=== PATIENT | female | born 1955 | race Two or more races ===

== ENCOUNTER 2024-08-04 12:49 | Inpatient (IN) | payer MEDICARE, MEDICAID, SELFPAY ==
[2024-08-04] VITALS (19 sets, daily range): BP systolic 0–168; BP diastolic 0–75; PULSE 25–70; RESP 15–29; TEMP 35.8–36.6; O2SAT 90–98; BMI 25.9; BMI 26.1
--- NOTE | 2024-08-04 13:00 | PC.NURSE ---
pt bradycardic, dr. laguerre notified and at bedside to assess.
--- NOTE | 2024-08-04 13:01 | EKG_ITS ---
[facility] (Formerly [facility])[3] Test Date: 2024-08-04 Pat Name: KIMBERLY BACH Department: Room: - Gender: Female Sonar Technician: : 1955 Requested By: Tre Cody Order Number: [id number] Reading MD: Tre Cody Measurements Intervals [place] Rate: 25 P: RI: QRS: 87 QRSD: 117 T: 104 QT: 671 QTc: 439 Interpretive Statements SUPRAVENTRICULAR BRADYCARDIA SEPTAL MYOCARDIAL INFARCTION , OF INDETERMINATE AGE [40+ ms Q WAVE IN V1/V2] Compared to ECG 10/11/2021 08:08:57 Sinus rhythm no longer present First degree AV block no longer present Myocardial infarct finding still present /store/S0/[id number]
[2024-08-04] MEDS: ATROPINE SULF INJ 0.1 MG/ML SYR 10 ML 0.5 MG IV ×2 (13:13→13:14)
[2024-08-04] MEDS: CALCIUM CHLORIDE 10% INJ 10 ML SYRG IV (13:14)
--- NOTE | 2024-08-04 13:15 | EKG_ITS ---
[facility] Test Date: 2024-08-04 Pat Name: KIMBERLY BACH Department: Room: - Gender: Female Order Analyst: [facility] : 1955 Requested By: Tre Cody Order Number: [id number] Reading MD: Tre Cody Measurements Intervals [place] Rate: 69 P: HI: QRS: -67 QRSD: 174 T: 105 QT: 493 QTc: 531 Interpretive Statements ELECTRONIC VENTRICULAR PACEMAKER ABNORMAL RHYTHM ECG Compared to ECG 08/04/2024 13:13:14 Myocardial infarct finding no longer present /store/S0/[id number]
--- NOTE | 2024-08-04 13:15 | XR_ITS ---
Examination: AP chest single view TECHNIQUE: AP portable sitting chest single view Exam date and time: August 04, 2024 1339 hours INDICATIONS: Weakness shortness of breath today. FINDINGS: Mild prominence of ventricle No pneumonia or pulmonary edema Prominent osteopenia Mild basilar bronchitis pattern IMPRESSION: No pneumonia or pulmonary edema Mild basilar bronchitis pattern
[2024-08-04] MEDS: Magnesium Sulfate 2 GM Ivpb 2 GM/50 ML BAG IV (13:18)
[2024-08-04] MEDS: DOBUTamine/D5w 500 MG IVPB 500 MG/250 ML BAG IV (13:30)
--- NOTE | 2024-08-04 13:30 | PC.NURSE ---
PT BEING PACED AT 60mA AND 60PPM.
[2024-08-04] MEDS: HYDROmorphone INJ 2 MG/ML VIAL 0.25 MG IVP (13:36)
--- NOTE | 2024-08-04 13:40 | EDNOTE_ITS ---
ED General RME/HPI General Chief complaint: Arrhythmia/Palpitations Stated complaint: WEAKNESS/ DIZZINESS Time Seen by Provider: 08/04/24 13:02 Arrival date/time: 08/04/24 12:49 RME / HPI RME / HPI narrative: 69-year-old female with history of hypertension dyslipidemia, elx-[id number]-tzprxxgsn diabetes who presents the emergency department with generalized weakness. She is critically bradycardic and unable to answer questions, history is limited due to the acuity. Son's: They note that her mother was otherwise well yesterday, there was a family get together and ate dinner which she had no issues with. However this morning she was sleepier and slept in until after 10:00 where she was still persistently lethargic therefore presents by EMS. She did not take her morning medicines including her Plavix. She likely took her last Plavix yesterday midmorning. Related Data Home Medications ?Medication ?Instructions ?Recorded ?Confirmed atorvastatin 40 mg tablet (Lipitor) 40 mg PO HS #0 tabs 12/16/15 glipizide 10 mg tablet 10 mg PO #0 tabs 12/16/15 metformin 850 mg tablet 850 mg PO BIDWM #0 tabs 12/16/15 (Glucophage) enalapril maleate 5 mg tablet 5 mg PO QDAY #0 tabs 07/02/16 (Vasotec) Hydrocodone/Acetaminophen * (NORCO 1 tab PO Q4H PRN PAIN #0 tabs 09/04/17 5/325 *) Previous Rx's ?Medication ?Instructions ?Recorded Amlodipine Besylate 10 mg PO QDAY #30 tabs 12/20/15 clopidogrel 75 mg tablet (Plavix) 75 mg PO QDAY #30 tabs 12/20/15 omeprazole 20 mg capsule,delayed 20 mg PO QDAY #30 caps 10/11/21 release Allergies Allergy/AdvReac Type Severity Reaction Status Date / Time No Known Allergies Allergy Verified 10/01/21 17:55 Review of Systems Review of Systems ROS Unobtainable: unobtainable due to medical condition ED Exam Narrative Physical exam: GENERAL APPEARANCE: Lethargic, open eyes to command, can answer 1-2 words at the most and then stops HEENT: NC, AT. MMM. Pale and cold to touch, EOMI, clear conjunctiva, oropharynx clear. NECK: Supple without lymphadenopathy. No stiffness or restricted ROM. HEART: Bradycardic regular, normal S1/S1, no m/r/g, no palpable pacemaker LUNGS: CTAB, moving air well. No crackles or wheezes are heard. ABDOMEN: Soft, nontender, nondistended with good bowel sounds heard. BACK: No midline C/T/L spine pain or deformity, No CVAT, no obvious deformity. EXTREMITIES: Without cyanosis, clubbing or edema., No obvious dialysis access such as fistula or catheter MUSCULOSKELETAL: FROM of all major joints, no chest tenderness NEUROLOGICAL: Grossly nonfocal. Alert and oriented, moving all 4 extremities. CN not formally tested but appear grossly intact. Observed to ambulate with normal gait. Skin: Warm and dry without any rash. Course Course Course Narrative: On arrival patient patient is lethargic, does open eyes to commands and answers 1-2 questions and then stops. Bedside telemetry shows heart rate of 20s to 30s. Blood pressure pending. Heart rate not responsive to atropine QRS widening complex not responsive to CaCl Heart rate not responsive to dobutamine EKG shows third-degree heart block with P waves buried in Q complex, no acute ST or T wave changes Transcutaneous pacing started with capture at 80 mA at 60 beats per minutes, patient is opening her eyes spontaneously now and much more alert. Quality Measures none Orders Category Date Time Status Bedside COVID-19 Antigen Test NOW Care 08/04/24 13:33 Active Bedside Influenza A&B Antigen Test NOW Care 08/04/24 13:33 Completed EKG (ED ONLY) *Do not use* NOW Care 08/04/24 13:02 Completed EKG (ED ONLY) *Do not use* NOW Care 08/04/24 13:15 Completed Consult to Cardiology Stat Cons 08/04/24 13:31 Ordered CCL pacemaker insertion Stat Exams 08/04/24 Ordered EKG (ED Only) Stat Exams 08/04/24 13:01 Draft EKG (ED Only) Stat Exams 08/04/24 13:15 Ordered XR chest 1V Stat Exams 08/04/24 13:15 Completed BNP [B-Type Natriuretic Peptide] Stat Lab 08/04/24 13:15 Received CBC Stat Lab 08/04/24 13:15 Completed CMP [Comprehensive Metabolic Panel] Stat Lab 08/04/24 13:15 Completed Lactate (Lactic Acid) Stat Lab 08/04/24 13:18 Results Mag [Magnesium] Stat Lab 08/04/24 13:15 Completed Partial Thromboplastin Time Stat Lab 08/04/24 13:15 Completed Prothrombin Time with INR Stat Lab 08/04/24 13:15 Completed Troponin I Stat Lab 08/04/24 13:15 Completed Atropine Inj SYR Med 08/04/24 13:08 Discontinued 0.5 mg IV X1 ONE Atropine Inj SYR Med 08/04/24 13:09 Discontinued 0.5 mg IV X1 ONE Calcium Chloride 10% Abboject Med 08/04/24 13:12 Discontinued 10 ml IV X1 ONE DOBUTamine/D5w 500 MG IVPB [Dobutrex/D5w IVPB] Med 08/04/24 13:16 Discontinued 500 mg in 250 ml IV .STK-MED DOBUTamine/D5w 500 MG IVPB [Dobutrex/D5w IVPB] Med 08/04/24 13:16 Active 500 mg in 250 ml IV 1 mcg/kg/min DOBUTamine/D5w 500 MG IVPB [Dobutrex/D5w IVPB] Med 08/04/24 13:31 Discontinued 500 mg in 250 ml IV 1 mcg/kg/min HYDROmorphone INJ [Dilaudid Inj] Med 08/04/24 13:32 Discontinued 0.25 mg IVP X1 ONE HYDROmorphone INJ [Dilaudid Inj] Med 08/04/24 13:24 Discontinued 2 mg .ROUTE .STK-MED ONE Magnesium Sulfate 2 GM Ivpb [Magnesium Sulfate Ivpb] Med 08/04/24 13:13 Active 2 gm in 50 ml IV X1 Magnesium Sulfate 2 GM Ivpb [Magnesium Sulfate Ivpb] 50 Med 08/04/24 13:11 Discontinued ml IV .STK-MED Sodium Chloride 0.9% 1000 ml [Ns] 1,000 ml Med 08/04/24 13:09 Discontinued IV 999 mls/hr Sodium Chloride 0.9% 1000 ml [Ns] 1,000 ml Med 08/04/24 13:55 Discontinued IV 999 mls/hr Sodium Chloride 0.9% 1000 ml [Ns] 1,000 ml Med 08/04/24 14:28 Active IV 999 mls/hr Reevaluation(s) Reevaluation #1: Patient much more awake and alert, eyes open, spontaneously responsive and answering questions. She does not recall what happened prior to her events. She only complains of pain with each pace. Time: 14:15 Vital Signs Vital signs: Vital Signs Pulse Rate 25 L 08/04/24 13:30 Blood Pressure 0/0 L 08/04/24 13:30 Procedures -ED EKG Interpretation #1: Date of EK08/04/24 Time of EK:13 Rate: 25 Interpretation: Interpreted by me EKG Impression: No acute ST-T changes Additional EKG comment: Bradycardic at 25 with complete heart block, widened QRS at 117 bpm, QTc 481 MDM Patient data External records reviewed:: [facility] previous records Clinical information provided by:: patient Social determinants that could affect healthcare access:: none Patient has the following chronic illnesses:: Hypertension, dyslipidemia, How is presenting disease/condition affected by chronic disease/condition?: u neffected by Evaluation data The following diagnostics were reviewed and interpreted by me:: lab results, radiology exam(s) and EKG tracing(s) Lab and/or radiology exams considered but not ordered:: None Interpretation Summary: As per narrative Medications Medications considered but not ordered:: None Medication administrations:: Medication Administration History Magnesium Sulfate (Magnesium Sulfate Ivpb) 2 gm in 50 mls @ 25 mls/hr IV X1 ONE Stop: 08/04/24 15:12 Last Infusion: 08/04/24 14:03 Dose: Infused Documented By: Admin: 08/04/24 13:18 Dose: 25 mls/hr Documented By: CORAL Dobutamine HCl/Dextrose (Dobutrex/D5w Ivpb) 500 mg in 250 mls @ 1.65 mls/hr IV .Q24H [facility]; Protocol Stop: 09/03/24 13:15 Last Titration: 08/04/24 13:50 Dose: Infused Documented By: Titration: 08/04/24 13:40 Dose: 3.5 mcg/kg/min, 5.775 mls/hr Documented By: Admin: 08/04/24 13:30 Dose: 1 mcg/kg/min, 1.65 mls/hr Documented By: CORAL Sodium Chloride (Ns) 1,000 mls @ 999 mls/hr IV .Q1H1M ONE Stop: 08/04/24 15:28 Discontinued Medications Atropine Sulfate (Atropine Sulf Inj 0.1 Mg/Ml Syr 10 Ml) 0.5 mg IV X1 ONE Stop: 08/04/24 13:09 Last Admin: 08/04/24 13:13 Dose: 0.5 mg Documented By: CORAL Atropine Sulfate (Atropine Sulf Inj 0.1 Mg/Ml Syr 10 Ml) 0.5 mg IV X1 ONE Stop: 08/04/24 13:10 Last Admin: 08/04/24 13:14 Dose: 0.5 mg Documented By: VG Calcium Chloride (Calcium Chloride 10% Inj 10 Ml Syrg) 10 ml IV X1 ONE Stop: 08/04/24 13:13 Last Admin: 08/04/24 13:14 Dose: 10 ml Documented By: CORAL Hydromorphone HCl (Hydromorphone Inj 2 Mg/Ml Vial) Confirm Administered Dose 2 mg .ROUTE .STK-MED ONE Stop: 08/04/24 13:25 Last Admin: 08/04/24 13:33 Dose: Not Given Documented By: VG Non-Admin Reason: Duplicate Medication on eMAR Hydromorphone HCl (Hydromorphone Inj 2 Mg/Ml Vial) 0.25 mg IVP X1 ONE Stop: 08/04/24 13:33 Last Admin: 08/04/24 13:36 Dose: 0.25 mg Documented By: CORAL Magnesium Sulfate (Magnesium Sulfate Ivpb) Confirm Administered Dose 50 mls @ ud IV .STK-MED ONE Stop: 08/04/24 13:12 Last Admin: 08/04/24 13:34 Dose: Not Given Documented By: VG Non-Admin Reason: Duplicate Medication on eMAR Dobutamine HCl/Dextrose (Dobutrex/D5w Ivpb) Confirm Administered Dose 500 mg in 250 mls @ ud IV .STK-MED ONE Stop: 08/04/24 13:17 Last Admin: 08/04/24 13:33 Dose: Not Given Documented By: VG Non-Admin Reason: Duplicate Medication on eMAR Dobutamine HCl/Dextrose (Dobutrex/D5w Ivpb) 500 mg in 250 mls @ 0 mls/hr IV .Q0M ONE; Protocol Stop: 08/04/24 13:32 Sodium Chloride (Ns) 1,000 mls @ 999 mls/hr IV .Q1H1M ONE Stop: 08/04/24 14:09 Last Infusion: 08/04/24 14:03 Dose: Infused Documented By: Admin: 08/04/24 14:01 Dose: 999 mls/hr Documented By: CORAL Sodium Chloride (Ns) 1,000 mls @ 999 mls/hr IV .Q1H1M ONE Stop: 08/04/24 14:55 Last Admin: 08/04/24 14:01 Dose: 999 mls/hr Documented By: CORAL Above Consultations Consultation(s) initiated? (list below): Yes Consultation #1 (Physician, Specialty, Details): Cardiology, Dr. Hui, reviewed case at length and EKG and consistent with complete heart block. Recommends continuous transcutaneous pacing until electrolytes return. If significant electrolyte abnormalities consider correction with transcutaneous pacing. If no significant electrolyte normalities likely for pacemaker placement emergently. Will call back with electrolyte results Time: 14:00 Consultation #2 (Physician, Specialty, Details): Cardiology, Dr. Hui, reviewed electrolytes, elevated lactic acid, and acute kidney injury, and concern for poor perfusion for possibly in the morning prior to arrival. Will need stabilization prior to permanent pacemaker placement and plan for transcutaneous pacer for the night, hydration and monitoring and possible pacemaker in the morning once ensuring good perfusion through the night. Plan to the Events Assistant for transcutaneous pacemaker placement and would like her transported after to the ICU. Time: 14:30 Consultation #3 (Physician, Specialty, Details): Critical care, Dr. Corona, reviewed case and plan with the Dr Hui to go to the ICU after transcutaneous pacer placement and agrees to admit. Time: 15:00 Diagnosis Differential Diagnosis ED Complaint MDM: Complete heart block, high heart block, hyperkalemia, hypokalemia, hypomagn Most likely diagnosis given after review of the tests above:: Complete heart Admission Indicated Admission indicated?: indicated Explain why admission is indicated or not indicated:: As per narrative Admission Request Was there a request for admission?: Yes Admission Attestation Admission request attestation: Discussed case with [Dr. Corona] from digital print operator service regarding admission. Discussed patients ED course, exam findings, labs, and radiology results. The digital print operator [agrees] to accept the patient for admission. Disposition Plan Disposition Plan: Admit Medical Decision Making MDM Narrative MDM Narrative: Mrs. Hernandez is a very ill lady with complete heart block and hypotension on arrival. She is unresponsive to atropine and dobutamine which is expected. She was transcutaneously paced at 80 mA and 60 beats per minutes with good response of pulse. She became much more alert, and now conversant with improved blood pressure. Patient does have signs of extended poor perfusion possibly for the duration of the morning. She has a mild kidney injury, lactic acidosis, without signs of sepsis by history or white blood cell count. After discussion with cardiology and critical care, will require stabilization overnight with improved perfusion using a transcutaneous pacer and IV fluids. Once kidney injury and acidosis has improved we will plan for a permanent pacemaker in the morning. Differential Diagnosis Differential Diagnosis: Complete heart block, high heart block, hyperkalemia, hypokalemia, hypomagn Lab Data 08/04/24 13:15 08/04/24 13:15 Labs: Lab Results 08/04/24 08/04/24 Range/Units 13:15 13:18 WBC 9.0 (3.6-11.0) Thou/mm3 RBC 3.11 L (4.00-5.20) Miln/mm3 Hgb 9.1 L (12.0-16.0) g/dL Hct 27.8 L (36.0-46.0) % MCV 89 (80-100) fL MCH 29.3 (25.0-35.0) pg MCHC 32.7 (31.0-37.0) g/dl RDW Std Deviation 44.6 (36.4-46.3) fL Plt Count 214 (140-440) Thou/mm3 Neut % (Auto) 73 (37-80) % Lymph % (Auto) 22 (10-50) % [place] % (Auto) 5 (0-12) % Eos % (Auto) 0 (0-10) % Baso % (Auto) 0 (0-2.5) % Neut # (Auto) 6.5 (1.8-7.7) Thou/mm3 Lymph # (Auto) 1.9 (1.0-4.8) Thou/mm3 [place] # (Auto) 0.4 (0.0-0.8) Thou/mm3 Eos # (Auto) 0.0 (0.0-0.5) Thou/mm3 Baso # (Auto) 0.0 (0.0-0.2) Thou/mm3 Immature Gran # (Auto) 0.05 H (0.00-0.00) Thou/mm3 Absolute Nucleated RBC 0.00 (0.00-0.00) Thou/mm3 Immature Gran % 1 H (0-0) % Nucleated RBC % 0 (0) /100 WBC PT 12.0 (9.0-12.2) Seconds INR 1.1 (0.9-1.3) APTT 26.2 (22.0-36.0) Seconds Sodium 135 L (136-145) mMol/L Potassium 5.4 H (3.4-5.1) mMol/L Chloride 102 (98-107) mMol/L Carbon Dioxide 18.0 L (20.0-31.0) mMol/L Anion Gap 15 (7-16) BUN 24 H (9-23) mg/dL Creatinine 2.1 H (0.6-1.3) mg/dL Estim Creat Clear Calc 20.6 L (>60) mL/min eGFR 25 L (60 - ) See Note BUN/Creatinine Ratio 11 L (12-20) Ratio Glucose 310 H (74-106) mg/dL Calculated Osmolality 286 (275-295) Lactic Acid 7.4 H* (0.4-2.0) mMol/L Calcium 10.0 (8.3-10.6) mg/dL Corrected Calcium 10.2 H (8.5-10.1) mg/dL Magnesium 2.3 (1.6-2.6) mg/dL Total Bilirubin 0.7 (0.3-1.2) mg/dL AST 192 H (0-34) U/L ALT 87 H (10-49) U/L Alkaline Phosphatase 115 (46-116) U/L Troponin I 0.832 H* (0.0-0.045) ng/mL Total Protein 7.1 (5.7-8.2) gm/dL Albumin 3.7 (3.4-4.8) gm/dL Globulin 3.4 (2.3-3.5) gm/dL Albumin/Globulin Ratio 1.1 L (1.2-2.2) Critical Care Time Critical Care Time Critical Care Time: Yes Total Critical Care Time (min.): 60 Attestation: Excluding billable procedures for the rapid response, analysis, management, deliberation with specialist, treatment, and documentation to vent the very possible risk of cardiovascular decompensation and or Discharge Plan Plan Patient Disposition: Admit Acute Care w/in Hospital Prescriptions/Referrals Prescriptions/Med Rec: No Action atorvastatin [Lipitor] 40 MG tablet 40 mg PO HS Qty: 0 metformin [Glucophage] 850 MG tablet 850 mg PO BIDWM Qty: 0 glipizide 10 MG tablet 10 mg PO Qty: 0 Amlodipine Besylate 5 MG tablet 10 mg PO QDAY Qty: 30 0RF clopidogrel [Plavix] 75 MG tablet 75 mg PO QDAY Qty: 30 0RF enalapril maleate [Vasotec] 5 MG tablet 5 mg PO QDAY Qty: 0 Hydrocodone/Acetaminophen * (NORCO 5/325 *) 1 TAB tablet 1 tab PO Q4H PRN (Reason: PAIN) Qty: 0 omeprazole 20 mg capsule,delayed release(DR/EC) 20 mg PO QDAY Qty: 30 0RF Patient/Caregiver Discharge Instructions Print Language: Congolese
--- NOTE | 2024-08-04 13:55 | PC.NURSE ---
PT BEING PACED AT 80mA AND 60PPM.
[2024-08-04 13:59] LABS: Basophils % (Auto) 0 % (0-2.5); Eosinophils % (Auto) 0 % (0-10); Hematocrit 27.8 % (36.0-46.0); Hemoglobin 9.1 g/dL (12.0-16.0); Immature Granulocytes % (Auto) 1 % (0-0); Immature Granulocytes Auto 0.05 Thou/mm3 (0.00-0.00); Lymphocytes # (Auto) 1.9 Thou/mm3 (1.0-4.8); Lymphocytes % (Auto) 22 % (10-50); Mean Corpuscular HGB Conc 32.7 g/dl (31.0-37.0); Mean Corpuscular Hemoglobin 29.3 pg (25.0-35.0); Mean Corpuscular Volume 89 fL (80-100); Monocytes # (Auto) 0.4 Thou/mm3 (0.0-0.8); Monocytes % (Auto) 5 % (0-12); Neutrophils # (Auto) 6.5 Thou/mm3 (1.8-7.7); Neutrophils % (Auto) 73 % (37-80); Nucleated Red Blood Cell % 0 /100 WBC (0); Platelet Count 214 Thou/mm3 (140-440); RDW Standard Deviation 44.6 fL (36.4-46.3); Red Blood Count 3.11 Miln/mm3 (4.00-5.20)
[2024-08-04] MEDS: SODIUM CHLORIDE 0.9% 1000 ML 1,000 ML 999 ML IV ×2 (14:01)
[2024-08-04 14:06] LABS: Lactate (Lactic Acid) 7.4 mMol/L (0.4-2.0)
[2024-08-04 14:32] LABS: Alanine Aminotransferase 87 U/L (10-49); Albumin, Serum 3.7 gm/dL (3.4-4.8); Albumin/Globulin Ratio 1.1 (1.2-2.2); Alkaline Phosphatase 115 U/L (46-116); Anion Gap 15 (7-16); Aspartate Amino Transferase 192 U/L (0-34); BUN/Creatinine Ratio 11 Ratio (12-20); Bilirubin,Total 0.7 mg/dL (0.3-1.2); Blood Urea Nitrogen 24 mg/dL (9-23); Calcium (Corrected) 10.2 mg/dL (8.5-10.1); Chloride 102 mMol/L (98-107); Creatinine (Component) 2.1 mg/dL (0.6-1.3); Estimated Creatinine Clearance 20.6 mL/min (>60); Globulin 3.4 gm/dL (2.3-3.5); Glucose 310 mg/dL (74-106); Magnesium 2.3 mg/dL (1.6-2.6); Osmolality,Calculated 286 (275-295); Potassium 5.4 mMol/L (3.4-5.1); Sodium 135 mMol/L (136-145); Total Protein 7.1 gm/dL (5.7-8.2); eGFR 25 See Note
[2024-08-04 14:33] LABS: INR 1.1 (0.9-1.3); Partial Thromboplastin Time 26.2 Seconds (22.0-36.0)
[2024-08-04 14:35] LABS: Troponin I 0.832 ng/mL (0.0-0.045)
--- NOTE | 2024-08-04 15:05 | PC.NURSE ---
pt taken to crime laboratory analyst.
[2024-08-04 15:06] LABS: B-Type Natriuretic Peptide 773 pg/mL (0-100)
[2024-08-04 16:55] LABS: Reflex Lactate? Y
--- NOTE | 2024-08-04 17:29 | ESOP_ITS ---
RE: KIMBERLY BACH : 1955 DATE OF OPERATION: 08/04/2024 PROCEDURE PERFORMED: Insertion of transvenous temporary pacemaker. DIAGNOSIS: Complete heart block, bradycardia, rate of 20 beats per minute. HISTORY AND INDICATIONS: The patient is a 69-year-old female with no major medical problems, admitted to the hospital with altered mental status and severe weakness. She has history of hypertension, hypercholesterolemia and noninsulin diabetes mellitus, came general weakness and fatigue. The patient was found to have heart rate of 25 beats per minute. The patient has been on Plavix and also diabetic medications. In the emergency room, patient has complete heart block, rate of 120 beats per minute, nonrecordable blood pressure. She was very lethargic and weak. External pacer was attached and laboratory data showed slight elevation. She was acidotic. Lactic acid level is high, her hemoglobin 9 and white count is 9. The lactic acid was high probably due to hyperperfusion and sodium. Potassium 5.4, creatinine 2.1, and BUN is 24. The patient recommended transvenous temporary pacemaker insertion, class I indication, waiting for possible indication for permanent pacemaker implantation. DESCRIPTION OF PROCEDURE: The patient was brought to cardiac catheterization where she was not given sedation. She seems to be lethargic. Right femoral vein was cannulated by micropuncture technique. An ultrasound guidance was used and 6-Egyptian sheath was introduced. A 5-Egyptian temporary transvenous pacemaker was inserted into right ventricular apex, _ after threshold was less than 1 MA. The temporary pacer was sutured in the right groin. The patient was transferred to intensive care unit. SUMMARY: Successful insertion of transvenous temporary pacemaker. CPT code 24429. DT: 16:34:49 TT: 17:04:00 Ref: [id number] - TID: [id number] [facility]
--- NOTE | 2024-08-04 17:51 | PC.NURSE ---
1619 patient is awake, alert, breathing unlabored, s/p temporary pacemaker insertion by Dr. Hui under local anesthesia, no sedation needed for procedure. sheath present to right groin, sheath secured in place, no bleeding or hematoma noted. Patient pacing at 70, 5 MA, sensitivity 2. Report received from Ayesha ANDRADE, patient to recover until she receives ICU bed. 1722 patient is awake, alert, breathing unlabored, vital signs stable. no bleeding or hematoma noted to right groin, Report given to Juana ANDRADE. patient transferred to ICU room 256 with portable monitor, accompanied by family member. Family member has belongings with him, including patient blanket.
--- NOTE | 2024-08-04 18:20 | PD.RESHP ---
Documentation for date of: 08/04/24 [facility] History of Present Illness Chief complaint: AMS History of present illness: 69-year-old female with history of hypertension, CVA with residual left-sided weakness, dyslipidemia, awl-sewjktk-ersvvqkoa diabetes who presented to the ED from home with chief complaint of severe lethargy and weakness. Patient was in her usual state of health until yesterday when she began feeling unusually tired, went to bed early. During the night patient went to use the bathroom and felt dizzy upon standing. This morning patient was difficult to arouse, patient's family called EMS to have patient taken to the ER. Upon arrival to ER patient was severely bradycardic and altered. ED course: Labs significant for: Potassium 5.4, bicarb 18, BUN 24, creatinine 2.1, EGFR 25, lactic acid 7.4, troponin 0.8, BNP 773. Imaging significant for: Chest x-ray unremarkable. EKG showed severe bradycardia with heart block. On arrival to ED patient had heart rate 25, blood pressure undetectable. Severe lactic acidosis. Patient received percutaneous pacing with improvement in heart rate, blood pressure, mentation. Patient was taken to Design Supervisor emergently for transvenous pacer. Patient brought to ICU for management of transvenous pacer. Review of Systems Review of Systems Narrative Review of Systems: ROS: General: Denies weight loss, fever. Reports dizziness and chills. HEENT: Denies changes in vision and hearing. Resp: Denies cough and wheezing. Endorses shortness of breath. CVS: Denies palpitations and CP. GI: Denies abdominal pain, nausea, vomiting and diarrhea. : Denies dysuria and urinary frequency. MSK: Denies myalgia and joint pain. Denies rash and pruritus. Neuro: Denies headache and syncope. Psych: Denies recent changes in mood. Denies anxiety and depression. Exam Vital Signs Temp Pulse Resp BP Pulse Ox O2 Del Method O2 Flow Rate 97.3 F 70 15 136/68 H 95 Oxy Mask 6 08/04/24 17:00 08/04/24 17:15 08/04/24 17:15 08/04/24 17:15 08/04/24 17:15 08/04/24 17:15 08/04/24 17:15 Narrative Exam PE: Gen: Well-developed and well-nourished. Lethargic. HEENT: NCAT, PERRLA, EOMI, MMM, anicteric conjunctivae. CVS: normal S1 and S2. RRR-paced. No M/R/G. Resp: CTA B/L. No rhonchi, rales, crackles or wheezing. Abd: soft, non-tender, non-distended. MSK: Good ROM in BUE & BLE. No edema or rash. Neuro: CN II-XII grossly intact. Strength 5/5 in RUE & RLE. Alert and oriented x3. Strength 4/5 in left upper and lower extremities, residual deficit from CVA. Results: Labs 08/05/24 02:38 08/05/24 02:38 Labs: Short CBC 08/04/24 Range/Units 13:15 WBC 9.0 (3.6-11.0) Thou/mm3 Hgb 9.1 L (12.0-16.0) g/dL Hct 27.8 L (36.0-46.0) % Plt Count 214 (140-440) Thou/mm3 BMP 08/04/24 13:15 Sodium 135 L Potassium 5.4 H Chloride 102 Carbon Dioxide 18.0 L BUN 24 H Creatinine 2.1 H Glucose 310 H Calcium 10.0 Cardiac Enzymes 08/04/24 Range/Units 13:15 Troponin I 0.832 H* (0.0-0.045) ng/mL Liver Function 08/04/24 Range/Units 13:15 Total Bilirubin 0.7 (0.3-1.2) mg/dL AST 192 H (0-34) U/L ALT 87 H (10-49) U/L Alkaline Phosphatase 115 (46-116) U/L Albumin 3.7 (3.4-4.8) gm/dL Quality Measures Quality Measures VTE prophylaxis Advance care planning discussed with:: patient Medications Home Medications and Allergies Home Medications ?Medication ?Instructions ?Recorded ?Confirmed ?Type atorvastatin 40 mg tablet (Lipitor) 40 mg PO HS #0 tabs 12/16/15 08/04/24 History glipizide 10 mg tablet 10 mg PO #0 tabs 12/16/15 History enalapril maleate 5 mg tablet 5 mg PO QDAY #0 tabs 07/02/16 History (Vasotec) carvedilol 6.25 mg tablet 6.25 mg PO BID 08/04/24 08/04/24 History cholecalciferol (vitamin D3) 125 125 mcg PO DAILY 08/04/24 08/04/24 History mcg (5,000 unit) capsule ferrous sulfate 325 mg (65 mg 325 mg PO DAILY 08/04/24 08/04/24 History iron) tablet (FeroSul) furosemide 20 mg tablet 20 mg PO DAILY 08/04/24 08/04/24 History hydrochlorothiazide 12.5 mg capsule 12.5 mg PO DAILY 08/04/24 08/04/24 History omeprazole 20 mg capsule,delayed 20 mg PO QDAY PRN Heartburn 08/04/24 08/04/24 History release sitagliptin phosphate 50 mg tablet 50 mg PO DAILY 08/04/24 08/04/24 History (Januvia) solifenacin 10 mg tablet 10 mg PO DAILY 08/04/24 08/04/24 History Allergies Allergy/AdvReac Type Severity Reaction Status Date / Time No Known Allergies Allergy Verified 10/01/21 17:55 Visit Medications Acetaminophen (Acetaminophen 325 Mg Tablet) 650 mg PO Q4HR PRN PRN Reason: PAIN SCALE 1-3 (mild Stop: 09/03/24 15:19 Acetaminophen (Acetaminophen Supp 650 Mg Supp) 650 mg WA Q4HR PRN PRN Reason: PAIN SCALE 1-3 (mild Stop: 09/03/24 15:19 Al Hydrox/Mg Hydrox/Simethicone (Mg Hyd/Al Hyd/Wilbert (Maalox Reg) Susp 30 Ml Udc) 30 ml PO Q4HR PRN PRN Reason: Heartburn or Upset Stomach Stop: 09/03/24 15:19 Atorvastatin Calcium (Atorvastatin Calcium 20 Mg Tablet) 40 mg PO HS YADIRA Stop: 09/03/24 20:59 Dextrose (Dextrose 50%-Water Inj 50 Ml Syringe) 25 ml IV Q15MIN PRN PRN Reason: BG 50-70 responsive npo pt Stop: 09/03/24 15:23 Dextrose (Dextrose 50%-Water Inj 50 Ml Syringe) 50 ml IV Q15MIN PRN PRN Reason: BG <50 OR BG <70 & pt unresponsive Stop: 09/03/24 15:23 Heparin Sodium (Porcine) (Heparin Sod Inj 5000 Unit/Ml Vial) 5,000 unit SC X1 ONE Stop: 08/04/24 22:01 Dobutamine HCl/Dextrose (Dobutrex/D5w Ivpb) 500 mg in 250 mls @ 1.65 mls/hr IV .Q24H [facility]; Protocol Stop: 09/03/24 13:15 Last Titration: 08/04/24 13:50 Dose: Infused Insulin Human Lispro (Insulin Lispro (Admelog) 1 Unit/0.01 Ml Unit) 0 unit SC ACHS [facility]; Protocol Stop: 09/03/24 16:59 Magnesium Hydroxide (Milk Of Magnesia Susp 30 Ml Udc) 30 ml PO QDAY PRN PRN Reason: CONSTIPATION Stop: 09/03/24 15:19 Nitroglycerin (Nitroglycerin 0.4 Mg Subl Btl #25) 0.4 mg SL Q5MIN PRN PRN Reason: CHEST PAIN Discontinued Medications Atropine Sulfate (Atropine Sulf Inj 0.1 Mg/Ml Syr 10 Ml) 0.5 mg IV X1 ONE Stop: 08/04/24 13:09 Last Admin: 08/04/24 13:13 Dose: 0.5 mg Atropine Sulfate (Atropine Sulf Inj 0.1 Mg/Ml Syr 10 Ml) 0.5 mg IV X1 ONE Stop: 08/04/24 13:10 Last Admin: 08/04/24 13:14 Dose: 0.5 mg Calcium Chloride (Calcium Chloride 10% Inj 10 Ml Syrg) 10 ml IV X1 ONE Stop: 08/04/24 13:13 Last Admin: 08/04/24 13:14 Dose: 10 ml Hydromorphone HCl (Hydromorphone Inj 2 Mg/Ml Vial) 0.25 mg IVP X1 ONE Stop: 08/04/24 13:33 Last Admin: 08/04/24 13:36 Dose: 0.25 mg Magnesium Sulfate (Magnesium Sulfate Ivpb) 2 gm in 50 mls @ 25 mls/hr IV X1 ONE Stop: 08/04/24 15:12 Last Infusion: 08/04/24 14:03 Dose: Infused Dobutamine HCl/Dextrose (Dobutrex/D5w Ivpb) 500 mg in 250 mls @ 0 mls/hr IV .Q0M ONE; Protocol Stop: 08/04/24 13:32 Sodium Chloride (Ns) 1,000 mls @ 999 mls/hr IV .Q1H1M ONE Stop: 08/04/24 14:09 Last Infusion: 08/04/24 14:03 Dose: Infused Sodium Chloride (Ns) 1,000 mls @ 999 mls/hr IV .Q1H1M ONE Stop: 08/04/24 14:55 Last Admin: 08/04/24 14:01 Dose: 999 mls/hr Sodium Chloride (Ns) 1,000 mls @ 999 mls/hr IV .Q1H1M ONE Stop: 08/04/24 15:28 Last Admin: 08/04/24 18:18 Dose: Not Given Assessment & Plan Plan 69-year-old female with history of hypertension dyslipidemia, kdw-cbxozie-kqtkwcdef diabetes who presents the emergency department with generalized weakness, admitted to ICU for management of transvenous pacer for severe symptomatic bradycardia. Neuro: #CVA history Patient has history of CVA 8 years ago with residual deficits, left-sided weakness. -Resume home meds following permanent pacemaker placement. Cardio: #Symptomatic bradycardia Patient presented with complaint of lethargy and weakness. Cold extremities. Found to be critically bradycardic with heart rate 25, BP undetectable. Patient unresponsive to atropine and dobutamine. Patient taken to Design Supervisor for emergent placement of transvenous pacer. -Cardiac monitoring -Maintain transvenous pacer -Trend troponin -N.p.o. after midnight pending permanent cath placement Pulm: #No active issues GI: #No active issues Renal: #MARIE Prerenal due to poor perfusion, secondary to bradycardia. BUN 24, creatinine 2.1, EGFR 25. All above patient's baseline based on previous labs. -Renally dose meds -Avoid nephrotoxins -Monitor daily labs -IVF: Lactated Ringer's 75 mL/h #Lactic acidosis Patient has elevated lactate 7.4, serum bicarb 18. Likely due to poor perfusion from symptomatic bradycardia. Bradycardia resolved transvenous pacer. Patient received 2 L bolus normal saline. -IVF as above -Monitor lactate Endo: #Type 2 diabetes, mqy-orjsndb-cbbjahmat Patient has history of ytu-occhjgw-xfyqgvmjj diabetes. A1c was 11.8% as of 10/01/2021. -Insulin sliding scale -A1c ordered for the morning. Heme: #Anemia Patient has mild anemia, hemoglobin 9.1. No signs of active bleeding. -Monitor ID: #No active issues Skin/MSK: #No active issues ICU Health maintenance: Mechanical ventilation: No Sedation: Now Diet: N.p.o. DVT ppx: Heparin GI ppx: No Winston: No IV lines: Peripheral IV Central line: No Arterial line: No Code status: Full code Plan of care discussed with attending Dr. Corona. Brennan Melendez MD PGY-1 Attending Provider Attestation/Addendum Patient seen and examined with above resident, Brennan Melendez MD. I agree with the findings, assessment, and plan of care as documented except for any differences below. Patient admitted with complete heart block requiring transvenous pacemaker placement emergently for cardiogenic shock. Appreciate cardiology input and ongoing management. Patient found to have elevated troponin with nausea likely a precipitant of RCA infarct. Patient was started on heparin drip along with addition of dual antiplatelet therapy. Plan for cardiac catheterization early tomorrow morning. Will trend troponins overnight. Patient remains hemodynamically stable and will follow serial lactate acid and urine output as markers of adequate perfusion. Patient's mentation back at baseline now with known residual findings from prior CVA. Patient with no significant electrolyte abnormalities otherwise with acidosis from hypoperfusion which has now been corrected. Patient without other clear precipitant for complete heart block apart from ischemia. Will exclude presence of infection at this point as well. Total critical care time: Personally spent 35 minutes for review of physiologic parameters, directing plan of care throughout the day, and coordination of care with other subspecialties. This is exclusive of time spent teaching of staff or performing separate billable procedures. Patient continues to require critical care services for cardiogenic shock secondary to complete heart block and acute coronary syndrome. Patient continues to be at high risk for increased morbidity and mortality.
[2024-08-04 18:45] LABS: Lactate (Lactic Acid) 2.5 mMol/L (0.4-2.0)
[2024-08-04 19:13] LABS: Alanine Aminotransferase 270 U/L (10-49); Albumin, Serum 4.1 gm/dL (3.4-4.8); Albumin/Globulin Ratio 1.2 (1.2-2.2); Alkaline Phosphatase 141 U/L (46-116); Anion Gap 11 (7-16); Aspartate Amino Transferase 418 U/L (0-34); BUN/Creatinine Ratio 14 Ratio (12-20); Bilirubin,Total 0.7 mg/dL (0.3-1.2); Blood Urea Nitrogen 27 mg/dL (9-23); Calcium 9.8 mg/dL (8.3-10.6); Calcium (Corrected) 9.8 mg/dL (8.5-10.1); Carbon Dioxide 18.9 mMol/L (20.0-31.0); Chloride 106 mMol/L (98-107); Estimated Creatinine Clearance 23.1 mL/min (>60); Globulin 3.5 gm/dL (2.3-3.5); Glucose 270 mg/dL (74-106); Osmolality,Calculated 287 (275-295); Potassium 5.1 mMol/L (3.4-5.1); Sodium 136 mMol/L (136-145); Total Protein 7.6 gm/dL (5.7-8.2); eGFR 26 See Note
--- NOTE | 2024-08-04 19:16 | PC.NURSE ---
per Dr. Hooper patient to be NPO at midnight, order received for CC, Cardiac Diet
--- NOTE | 2024-08-04 19:17 | EKG_ITS ---
[facility] Test Date: 2024-08-04 Pat Name: KIMBERLY BACH [facility] Gender: Female Train Electronic Technician: : 1955 Requested By: Perri Hooper Order Number: [id number] Reading MD: Perri Hooper Measurements Intervals [place] Rate: 34 P: VT: QRS: 85 QRSD: 117 T: 101 QT: 694 QTc: 527 Interpretive Statements SINUS RHYTHM WITH HIGH GRADE AV BLOCK SEPTAL MYOCARDIAL INFARCTION , OF INDETERMINATE AGE [40+ ms Q WAVE IN V1/V2] Compared to ECG 10/11/2021 08:08:57 First degree AV block no longer present Myocardial infarct finding still present /store/S0/[id number]/ecg/[id number].pdf
[2024-08-04] MEDS: ONDANSETRON INJ 2 MG/ML INJ 2 ML 4 MG IV (19:19)
[2024-08-04] MEDS: ATORVASTATIN CALCIUM 20 MG TABLET 40 MG PO (20:29)
[2024-08-04] MEDS: ASPIRIN 81 MG CHEW 324 MG PO (20:29)
[2024-08-04] MEDS: HEPARIN SOD INJ 5000 UNIT/ML VIAL 3850 UNIT IV (20:29)
[2024-08-04] MEDS: Heparin/D5w 25K 250 ML Ivpb 25,000 UNIT/250 ML BAG 7.728 UNIT IV (20:29)
[2024-08-04] MEDS: INSULIN LISPRO (AdmeLOG) 1 UNIT/0.01 ML UNIT SC (20:52)
[2024-08-04 21:30] LABS: Troponin I 67.804 ng/mL (0.0-0.045)
[2024-08-04 21:44] LABS: Reflex Lactate? Y
--- NOTE | 2024-08-04 23:20 | ECHO_ITS ---
Transthoracic Echo Report Ht (in): 62 Wt (lb): 141 Exam Location: Portable Status: Inpatient Oncology Social Worker: Lisa Angel Indications: Procedure Performed: BP: 105 / 62 HR: 70 Technical Quality: Fair MEASUREMENTS (Male / Female) Normal Values 2D ECHO LV Diastolic Diameter PLAX 4.3 cm 4.2 - 5.9 / 3.9 - 5.3 cm LV Systolic Diameter PLAX 3.3 cm IVS Diastolic Thickness 1.0 cm 0.6 - 1.0 / 0.6 - 0.9 cm LVPW Diastolic Thickness 0.9 cm 0.6 - 1.0 / 0.6 - 0.9 cm LV Relative Wall Thickness 0.4 LVOT Diameter 1.6 cm LA Volume Index 33.9 cm?/m? 16 - 28 cm?/m? M-MODE Aortic Root Diameter MM 2.7 cm LA Systolic Diameter MM 4.3 cm LA Ao Ratio MM 1.6 AV Cusp Separation MM 1.9 cm DOPPLER AV Peak Velocity 108.0 cm/s AV Peak Gradient 4.7 mmHg AV Mean Gradient 3.0 mmHg AV Velocity Time Integral 23.1 cm LVOT Peak Velocity 75.0 cm/s LVOT Peak Gradient 2.3 mmHg LVOT Velocity Time Integral 15.7 cm LVOT Cardiac Index 1309.7 cm?/min?m? AV Area Cont Eq vti 1.4 cm? AV Area Cont Eq pk 1.4 cm? MV Peak Velocity 175.0 cm/s MV Peak Gradient 12.3 mmHg MV Mean Velocity 67.9 cm/s MV Mean Gradient 3.0 mmHg MV Area PHT 4.6 cm? MR Peak Velocity 502.0 cm/s MR Peak Gradient 100.8 mmHg Mitral E Point Velocity 146.0 cm/s Mitral A Point Velocity 42.8 cm/s Mitral E to A Ratio 3.4 LV E' Lateral Velocity 2.8 cm/s Mitral E to LV E' Lateral Ratio 51.6 LV E' Septal Velocity 3.4 cm/s Mitral E to LV E' Septal Ratio 43.3 TR Peak Velocity 220.0 cm/s TR Peak Gradient 19.4 mmHg FINDINGS Left Ventricle Normal left ventricular size, wall thickness. Mild systolic dysfunction. septal dyskinesis due to RV pacingl. The ejection fraction is visually estimated at 50%. Right Ventricle The right ventricle is normal in size and systolic function. The estimated right ventricular systoli c pressure, 35mmHg. RAP 5. Pacing wire present. Left Atrium The left atrium is normal by two-dimensional, color flow and Doppler imaging with no structural abnormalities, no thrombus formation present. Right Atrium The right atrium is normal by two-dimensional imaging, color flow and Doppler imaging with no struct ural abnormalities, no thrombus formation present. Atrial Septum The interatrial septum appears normal with no evidence of a shunt. Aorta The aorta is normal by two-dimensional, color flow and Doppler interrogation. Mitral Valve The mitral valve is normal by two-dimensional, color flow and Doppler interrogation. There is mild t o moderate mitral valve regurgitation Aortic Valve The aortic valve is trileaflet. Mild sclerosis without stenosis. There is no significant aortic valv e regurgitation. Tricuspid Valve The tricuspid valve is normal by two-dimensional, color flow and Doppler interrogation. There is mil d tricuspid valve regurgitation. Pulmonic Valve There is no significant pulmonic valve regurgitation. Vessels The pulmonary artery appears normal. The inferior vena cava pulmonary and hepatic veins appear herber l. Pericardium The pericardium is normal by two-dimensional imaging. There is no significant pericardial effusion. CONCLUSIONS Normal LV size with septal dyskinesis LV EF 50% Normal RVsize and function. Estimated RVSP 35mmHg Pacing wire present. Mild mitral regurgitation. Mild TR. Mild AV sclerosis without stenosis. Amanda Christopher (Electronically Signed) Final Date: 05 August 2024 14:07
[2024-08-05] VITALS (37 sets, daily range): BP systolic 78–152; BP diastolic 40–76; PULSE 70; RESP 12–26; TEMP 36.3–36.9; O2SAT 92–98
--- NOTE | 2024-08-05 01:15 | ESPR_ITS ---
RE: KIMBERLY BACH : 1955 DATE OF SERVICE: 08/04/2024 SUBJECTIVE: A 77-year-old lady admitted to the hospital with complete heart block, rate of 25 beats per minutes, hypoxia and also lactic acidosis due to poor perfusion. Initial troponin was 0.389__ but subsequent troponin has just _16_ gone up suggestive of acute myocardial infarction. There is no clear ST-elevation, however the patient's troponin jumped up to _16 and 67 suggestive of acute myocardial infarction. We will continue antithrombotic therapy aspirin and Plavix. We will start the patient on heparin drip. The patient's lactic acidosis improved after pacemaker implantation, lactic acid 7.250, which is excellent. She is not complaining of any chest pain whatsoever. EKG clearly shows 100% pacemaker rhythm. Difficult to ascertain whether there is any acute ST-elevation myocardial infarction, but there may be some suggestion of inferior wall myocardial infarction. Again, it is a difficult diagnosis to make when paced rhythm. The patient has underlying complete heart block, third-degree AV block. IMPRESSION: 1. Complete heart block secondary to acute myocardial infarction, possibly inferior wall myocardial infarction, presentation of complete heart block and very slow heart rate requiring temporary pacemaker insertion. 2. Hemodynamically stable. RECOMMENDATIONS: We will continue aspirin and Plavix, heparin to be continued and we will go ahead and perform coronary angiogram, possible percutaneous coronary angioplasty in the morning. DT: 23:04:00 TT: 00:25:00 Ref: [id number] - TID: [id number] MTDD
[2024-08-05 02:53] LABS: Basophils % (Auto) 0 % (0-2.5); Eosinophils % (Auto) 0 % (0-10); Hematocrit 24.6 % (36.0-46.0); Immature Granulocytes % (Auto) 1 % (0-0); Immature Granulocytes Auto 0.05 Thou/mm3 (0.00-0.00); Lymphocytes # (Auto) 1.4 Thou/mm3 (1.0-4.8); Lymphocytes % (Auto) 15 % (10-50); Mean Corpuscular HGB Conc 32.9 g/dl (31.0-37.0); Mean Corpuscular Hemoglobin 28.8 pg (25.0-35.0); Mean Corpuscular Volume 88 fL (80-100); Monocytes # (Auto) 0.5 Thou/mm3 (0.0-0.8); Monocytes % (Auto) 5 % (0-12); Neutrophils # (Auto) 7.4 Thou/mm3 (1.8-7.7); Neutrophils % (Auto) 79 % (37-80); Nucleated Red Blood Cell % 0 /100 WBC (0); Platelet Count 198 Thou/mm3 (140-440); RDW Standard Deviation 44.4 fL (36.4-46.3); Red Blood Count 2.81 Miln/mm3 (4.00-5.20); White Blood Count 9.4 Thou/mm3 (3.6-11.0)
[2024-08-05 03:09] LABS: Hemoglobin 8.1 g/dL (12.0-16.0)
[2024-08-05 03:10] LABS: Partial Thromboplastin Time 87.9 Seconds (22.0-36.0)
[2024-08-05 03:17] LABS: Alanine Aminotransferase 218 U/L (10-49); Albumin, Serum 3.4 gm/dL (3.4-4.8); Albumin/Globulin Ratio 1.1 (1.2-2.2); Alkaline Phosphatase 109 U/L (46-116); Anion Gap 8 (7-16); Aspartate Amino Transferase 323 U/L (0-34); BUN/Creatinine Ratio 15 Ratio (12-20); Bilirubin,Total 0.3 mg/dL (0.3-1.2); Blood Urea Nitrogen 28 mg/dL (9-23); Calcium 9.7 mg/dL (8.3-10.6); Calcium (Corrected) 10.2 mg/dL (8.5-10.1); Chloride 108 mMol/L (98-107); Creatinine (Component) 1.9 mg/dL (0.6-1.3); Estimated Creatinine Clearance 23.7 mL/min (>60); Glucose 157 mg/dL (74-106); Osmolality,Calculated 282 (275-295); Potassium 4.6 mMol/L (3.4-5.1); Sodium 137 mMol/L (136-145); Total Protein 6.4 gm/dL (5.7-8.2); eGFR 28 See Note
[2024-08-05 03:19] LABS: Glucose Estimated Average 151 mg/dL (80-131); Hemoglobin A1C 6.9 % Hgb (4.8-6.0)
[2024-08-05 03:22] LABS: Troponin I 42.095 ng/mL (0.0-0.045)
--- NOTE | 2024-08-05 03:29 | PC.NURSE ---
DR. JEROME MADE AWARE OF DROP IN HGB FROM 9.1 TO 8.1. NO SIGNS OF ACTIVE BLEEDING. NO FURTHER ORDERS
--- NOTE | 2024-08-05 07:43 | ESCONSULT_ITS ---
RE: KIMBERLY BACH : 1955 DATE OF CONSULTATION: 08/04/2024 CONSULTING PHYSICIANS: Hospitalist and also an ER physician and Dr. Tre Cody. REASON FOR CONSULTATION: Evaluation of severe bradycardia for temporary pacemaker insertion. HISTORY OF PRESENT ILLNESS: The patient is a 69-year-old female with a history of hypertension and diabetes and no major medical issues other than that, not been to the hospital for at least 2 years. Apparently was doing well until last night. She was feeling allright, suddenly became weak, this morning, lethargic, generalized weakness, fatigue, could not walk. In the hospital emergency room heart rate was 20. Blood pressure is not recordable. The patient is not on any beta-dipti. Home medications only include amlodipine 10 mg daily, Plavix 75 mg daily, omeprazole 20 daily. The patient is found to have complete heart block with a heart rate of 20 beats per minute with ventricular escape rhythm with 30-degree AV block. Laboratory data showed elevated lactic acid level 7.4, potassium is 5.4, CO2 is 18, BUN 24, creatinine 2.1. The patient probably has hypoperfusion lactic acidosis as a result of that. There was also elevated BNP levels. There was slight elevation of troponin 0.8. Chest x-ray showed clear lung henry. The patient has external pacer. ALLERGIES: NONE. MEDICATIONS: As described earlier, the patient is on amlodipine 10 mg daily. Also takes clopidogrel 75 daily, omeprazole 20 daily. PAST MEDICAL HISTORY: Hypertension, diabetes mellitus, and hypercholesterolemia. SOCIAL HISTORY: Not obtainable. She is a nonsmoker. . FAMILY HISTORY: Not available. PHYSICAL EXAMINATION: GENERAL: Well nourished elderly female, thin-built, alert, awake, no acute distress. VITAL SIGNS: Blood pressure after pacing 140/70, pulse rate 70. NECK: Supple. No JVD. LUNGS: Decreased breath sounds. No rales or rhonchi. HEART: Heart S1, S2 regular. No gallops. ABDOMEN: Abdomen is thin and soft. EXTREMITIES: No edema. /RECTAL: Not performed. electrocardiogram showed complete heart block, third-degree AV block. Heart rate of 20 beats per minute with ventricular escape rhythm. ASSESSMENT: 1. Severe symptomatic bradycardia with complete heart block rate of 25 beats per minute requiring external pacing. 2. Mild hyperkalemia. 3. Mild lactic acidosis, positive secondary to tissue 4. Acute kidney injury, possibly due to hypoperfusion. 5. Hypertension. 6. Diabetes mellitus. RECOMMENDATIONS: The patient will be admitted to intensive care unit. _ temporary pacemaker will be performed today and after 24 hours of the electrolyte imbalance is corrected and if her heart rate remains low and , she will require permanent pacemaker implantation. DT: 16:38:08 TT: 17:34:00 Ref: [id number] - TID: [id number] MTDD
--- NOTE | 2024-08-05 12:27 | PC.SS ---
HEEL ATTACHER attempted bedside contact with the patient to conduct initial assessment. Patient not present. Patient at labor relations consultant undergoing angiogram.
--- NOTE | 2024-08-05 13:36 | ESOP_ITS ---
RE: KIMBERLY BACH : 1955 DATE OF OPERATION: 08/05/2024 DATE OF PROCEDURE: 08/05/2024 PROCEDURE PERFORMED: 1. Diagnostic left heart catheterization, selective coronary angiogram, and left ventricular angiogram CPT 73729. 2. Ultrasound-guided access right radial artery. 3. PCI stent placement of the mid right coronary artery non-ST segment myocardial infarction CPT 33143. Placement of drug-eluting stent 2.5 x 15 mm Xience Abbot drug- eluting stent. Preprocedure stenosis 99% and postprocedure stenosis 0%. ENRIQUE flow preprocedure is 2, postprocedure is 3. 4. Ultrasound-guided access right radial artery. 5. Conscious sedation 40-minute duration. DIAGNOSIS: Coronary artery disease with acute myocardial infarction, complete heart block. HISTORY AND INDICATIONS: The patient is a 69-year-old female with a past medical history of hypertension and diabetes, who presented to the hospital with complete heart block yesterday with no chest pain. There was no ST elevation. Temporary pacemaker was inserted and the patient remained in complete heart block, pacemaker dependent. troponin 0.8, went up to 16 and up to 16, now coming down, because of acute myocardial infarction and complete heart block, emergency coronary angiogram, PCI stent placement was recommended. DESCRIPTION OF PROCEDURE: The patient was brought to cardiac catheterization laboratory She was given 1 mg of Versed and 50 mg of fentanyl for conscious sedation . Right radial approach was taken. The right radial artery was cannulated by micropuncture technique. A 6-Tamazight Glidesheath introduced. Selective right and left coronary angiogram, left heart catheterization, LV angiogram performed by TIG-4 diagnostic catheter, 5- Tamazight catheter. Subsequently, PCI was undertaken. Diagnostic procedure showed the following findings: HEMODYNAMICS: Left ventricular pressure 110/15. Aortic pressure 110/70. No gradient tachycardia. Left ventricular angiogram showed evidence of mild inferior hypokinesis. Ejection fraction of 50%. Coronary angiogram showed the following findings: The right coronary artery is large and dominant. It showed evidence of a 99% stenosis of the mid RCA TIMI2 flow. Left coronary artery system: Left main coronary artery showed calcification and no significant stenosis. Left anterior descending artery showed heavy calcification of the proximal mid and distal segment. There is moderate stenosis of proximal and mid anterior descending artery about 60% stenosis of the proximal and mid segments and there is diffuse calcification and moderate disease distally as well. Left circumflex artery showed evidence of use of high obtuse marginal branch and PL_ branches both of them showed no significant stenosis. If culprit vessel is right coronary artery, hence PCI and stent placement is recommended. The patient was given IV heparin, radial cocktail 2000, additional 2500 units, ACD 300, proceed with PCI, aspirin, [place], a loading dose was given. Proceed with a PCI. A 0.014 run-through guide were used properly and successfully and a 2.5 mm x 12 mm balloon was used to dilated lesion, subsequently 2.5 x 15 mm Xience stent was deployed successfully with 40 mmHg pressure. Final angiogram showed widely patent, right coronary artery with no residual stenosis. TR band was occluded and hemostasis secured. SUMMARY OF FINDINGS: 1. Double vessel coronary artery with evidence of 99% stenosis. The right coronary artery underwent successful PCI stent placement with a diagnosis of acute myocardial infarction. Preprocedure stenosis 99% and postprocedure stenosis 0%. ENRIQUE flow preprocedure is 2, postprocedure is 3. 2. Moderate stenosis of the left ANTERIOR DESCENDING ARTERY approximately 60% stenosis with heavy calcification of the LAD. 3. Preserved LV ejection fraction of 50-55%. RECOMMENDATIONS: Continue medical management, aspirin and Brilinta. We will monitor the heart rate and after 24 to 48 hours, if her heart rate does not warehouse order picker and remains in complete heart block, she may require permanent pacemaker implantation PRIOR TO_ discharge. DT: 11:27:25 TT: 13:34:00 Ref: [id number] - TID: [id number] [facility]
--- NOTE | 2024-08-05 14:18 | PC.NURSE ---
1122 patient is sleepy and arousable, breathing unlabored, s/p LHC with PCI by Dr. Hui, tolerated procedure well under IV sedation, TR band present to right wrist, no bleeding or hematoma noted, pt has temporary pacemaker sheath to right groin in place that was put in yesterday. Patient pacing at 70 . Report received from Cora ANDRADE, ok to start removing air from TR band 2hrs post hemostasis time, then discharge patient back to room once TR band removed. Pt to start brilinta 90mg BID starting tonight 9pm.
--- NOTE | 2024-08-05 14:22 | PC.NURSE ---
1300 patient is awake, alert, breathing unlabored, no bleeding or hematoma to right wrist or right groin, report given to Betty ANDRADE 1335 assume care of patient
--- NOTE | 2024-08-05 14:36 | PC.NURSE ---
1415 TR band to right wrist removed, no bleeding or hematoma noted, site covered with tegaderm and coban. coban to be removed in 24 hrs (08/06/24 141), tegaderm to be removed in 48hrs (08/07/241414).
--- NOTE | 2024-08-05 15:14 | PC.NURSE ---
145 patient is awake, alert, breathing unlabored, dressing to right wrist dry with no bleeding or hematoma, pacemaker sheath in place to right groin. Report given to Tremayne ANDRADE, patient transferred back to ICU with ICU portable monitoring device.
[2024-08-05] MEDS: ONDANSETRON INJ 2 MG/ML INJ 2 ML 4 MG IV (15:18)
--- NOTE | 2024-08-05 16:01 | ESPR_ITS ---
Documentation for date of: 08/05/24 Subjective Subjective Interval history: 69-year-old female with history of hypertension, CVA with residual left-sided weakness, dyslipidemia, qyu-cscvjpm-xyadwecai diabetes who presented to the ED from home with chief complaint of severe lethargy and weakness. Patient was in her usual state of health until yesterday when she began feeling unusually tired, went to bed early. During the night patient went to use the bathroom and felt dizzy upon standing. This morning patient was difficult to arouse, patient's family called EMS to have patient taken to the ER. Upon arrival to ER patient was severely bradycardic and altered. ED course: Labs significant for: Potassium 5.4, bicarb 18, BUN 24, creatinine 2.1, EGFR 25, lactic acid 7.4, troponin 0.8, BNP 773. Imaging significant for: Chest x-ray unremarkable. EKG showed severe bradycardia with heart block. On arrival to ED patient had heart rate 25, blood pressure undetectable. Severe lactic acidosis. Patient received percutaneous pacing with improvement in heart rate, blood pressure, mentation. Patient was taken to [facility] emergently for transvenous pacer. Patient brought to ICU for management of transvenous pacer. 07/26/2024: Patient seen and examined at bedside. Troponins uptrended overnight, peaking at 67.8. Patient started on heparin drip, was taken to laborer high density press for left heart catheterization, selective coronary angiogram, and left ventricular angiogram. Found to have 99% stenosis of right coronary artery, underwent successful PCI stent placement. Started Brilinta and aspirin. Patient remains on transvenous pacing, will continue to be monitored in the ICU. Currently denies chest pain or SOB. Exam Vital Signs Temp Pulse Resp BP Pulse Ox O2 Del Method O2 Flow Rate 98.1 F 70 13 116/51 L 93 L Nasal Cannula 2 08/05/24 11:22 08/05/24 15:02 08/05/24 15:02 08/05/24 14:30 08/05/24 15:02 08/05/24 15:02 08/05/24 15:02 Narrative Exam PE: Gen: Well-developed and well-nourished. HEENT: NCAT, PERRLA, EOMI, MMM, anicteric conjunctivae. CVS: normal S1 and S2. RRR-paced. No M/R/G. Resp: CTA B/L. No rhonchi, rales, crackles or wheezing. Abd: soft, non-tender, non-distended. MSK: Good ROM in BUE & BLE. No edema or rash. Neuro: CN II-XII grossly intact. Strength 5/5 in RUE & RLE. Alert and oriented x3. Strength 4/5 in left upper and lower extremities, residual deficit from CVA. Objective Labs 08/07/24 04:40 08/07/24 04:40 Labs: Laboratory Results - last 24 hr 08/04/24 08/04/24 08/05/24 18:40 20:32 02:38 WBC 9.4 RBC 2.81 L Hgb 8.1 L Hct 24.6 L MCV 88 MCH 28.8 MCHC 32.9 RDW Std Deviation 44.4 Plt Count 198 Neut % (Auto) 79 Lymph % (Auto) 15 [place] % (Auto) 5 Eos % (Auto) 0 Baso % (Auto) 0 Neut # (Auto) 7.4 Lymph # (Auto) 1.4 [place] # (Auto) 0.5 Eos # (Auto) 0.0 Baso # (Auto) 0.0 Immature Gran # (Auto) 0.05 H Absolute Nucleated RBC 0.00 Immature Gran % 1 H Nucleated RBC % 0 APTT 87.9 H D Sodium 136 137 Potassium 5.1 4.6 D Chloride 106 108 H Carbon Dioxide 18.9 L 21.0 Anion Gap 11 8 BUN 27 H 28 H Creatinine 2.0 H 1.9 H Estim Creat Clear Calc 23.1 L 23.7 L eGFR 26 L 28 L BUN/Creatinine Ratio 14 15 Glucose [address] Glu mg/dL 151 H Hemoglobin A1c 6.9 H Calculated Osmolality 287 282 Lactic Acid 2.5 H 2.0 Calcium 9.8 9.7 Corrected Calcium 9.8 10.2 H Total Bilirubin 0.7 0.3 AST 418 H 323 H ALT 270 H 218 H Alkaline Phosphatase 141 H D 109 D Troponin I 16.670 H* D 67.804 H* D 42.095 H* D Total Protein 7.6 6.4 Albumin 4.1 3.4 D Globulin 3.5 3.0 Albumin/Globulin Ratio 1.2 1.1 L Quality Measures Quality Measures VTE prophylaxis Advance care planning discussed with:: patient Assessment & Plan Assessment Current Active Medications: Generic Name Dose Route Start Last Admin Trade Name Freq PRN Reason Stop Dose Admin Acetaminophen 650 mg 08/04/24 15:20 Acetaminophen 325 Mg Tablet PO 09/03/24 15:19 Q4HR PRN PAIN SCALE 1-3 (mild Acetaminophen 650 mg 08/04/24 15:20 Acetaminophen Supp 650 Mg Supp GA 09/03/24 15:19 Q4HR PRN PAIN SCALE 1-3 (mild Al Hydrox/Mg Hydrox/Simethicone 30 ml 08/04/24 15:20 Mg Hyd/Al Hyd/Wilbert (Maalox Reg) Susp 30 Ml Udc PO 09/03/24 15:19 Q4HR PRN Heartburn or Upset Stomach Aspirin 81 mg 08/06/24 09:00 Aspirin 81 Mg Chew PO 09/05/24 08:59 QDAY YADIRA Atorvastatin Calcium 40 mg 08/04/24 21:00 08/04/24 20:29 Atorvastatin Calcium 20 Mg Tablet PO 09/03/24 20:59 40 mg HS YADIRA Administration Dextrose 25 ml 08/04/24 15:24 Dextrose 50%-Water Inj 50 Ml Syringe IV 09/03/24 15:23 Q15MIN PRN BG 50-70 responsive npo pt Dextrose 50 ml 08/04/24 15:24 Dextrose 50%-Water Inj 50 Ml Syringe IV 09/03/24 15:23 Q15MIN PRN BG <50 OR BG <70 & pt unresponsive Insulin Human Lispro 0 unit 08/05/24 17:00 Insulin Lispro (Admelog) 1 Unit/0.01 Ml Unit SC 09/04/24 16:59 ACHS YADIRA Protocol Magnesium Hydroxide 30 ml 08/04/24 15:20 Milk Of Magnesia Susp 30 Ml Udc PO 09/03/24 15:19 QDAY PRN CONSTIPATION Nitroglycerin 0.4 mg 08/04/24 15:20 Nitroglycerin 0.4 Mg Subl Btl #25 SL Q5MIN PRN CHEST PAIN Ondansetron HCl 4 mg 08/04/24 18:30 08/05/24 15:18 Ondansetron Inj 2 Mg/Ml Inj 2 Ml IV 09/03/24 18:29 4 mg Q6HR PRN Administration NAUSEA OR VOMITING Protocol Pantoprazole Sodium 40 mg 08/06/24 09:00 Pantoprazole 40 Mg Tablet PO 09/05/24 08:59 QDAY [facility] Ticagrelor 90 mg 08/05/24 21:00 Ticagrelor 90 Mg Tablet PO 09/04/24 20:59 BID [facility] Plan 69-year-old female with history of hypertension dyslipidemia, ngr-dchpktc-jpuapuaow diabetes who presents the emergency department with generalized weakness, admitted to ICU for management of transvenous pacer for severe symptomatic bradycardia. Neuro: #CVA history Patient has history of CVA 8 years ago with residual deficits, left-sided weakness. Cardio: #NSTEMI s/p PCI #Symptomatic bradycardia Patient presented with complaint of lethargy and weakness. Cold extremities. Found to be critically bradycardic with heart rate 25, BP undetectable. Patient unresponsive to atropine and dobutamine. Patient taken to [facility] for emergent placement of transvenous pacer. Patient troponin elevated, peaked at 67.8. Patient taken to [facility] Coord[facility] for PCI and left heart catheterization, found to have right coronary artery stenosis of 95%, stent successfully placed. Patient base heart rate tested, patient still fully dependent on pacemaker. -Cardiac monitoring -Maintain transvenous pacer -Aspirin and Brilinta -Statin 40 -Cardio consulted, recs appreciated -If no recovery in heart rate, plans for permanent pacemaker Pulm: #No active issues GI: #Transaminitis Possible shock liver due to prolonged ischemia secondary to symptomatic bradycardia. Downtrending -Avoid hepatotoxins -Monitor Renal: #MARIE Prerenal due to poor perfusion, secondary to bradycardia. BUN 24, creatinine 2.1, EGFR 25. All above patient's baseline based on previous labs. Renal labs improved with fluids. -Renally dose meds -Avoid nephrotoxins -Monitor daily labs #Lactic acidosis, resolved Patient has elevated lactate 7.4, serum bicarb 18. Likely due to poor perfusion from symptomatic bradycardia. Bradycardia resolved transvenous pacer. Patient received 2 L bolus normal saline. Resolved with IVF Endo: #Type 2 diabetes, ldb-npgtwby-psmqpjubz Patient has history of ukg-uctsanb-ouksmwqhk diabetes. A1c was 6.9% as of 08/05/2024. -Insulin sliding scale Heme: #Anemia Patient has mild anemia, hemoglobin 9.1. No signs of active bleeding. -Monitor ID: #No active issues Skin/MSK: #No active issues ICU Health maintenance: Mechanical ventilation: No Sedation: Now Diet: N.p.o. DVT ppx: Heparin GI ppx: No [place]: No IV lines: Peripheral IV Central line: No Arterial line: No Code status: Full code Plan of care discussed with attending Dr. Corona. Brennan Melendez MD PGY-1 Attending Provider Attestation/Addendum Patient seen and examined with above resident, Brennan Melendez MD. I agree with the findings, assessment, and plan of care as documented except for any differences below. Patient overnight found to have significant rise in troponin with return to [facility] this morning for left heart catheterization and stenting of the RCA for 99% stenosis. Heparin drip was discontinued post procedure. Patient will remain on dual antiplatelet therapy at this point along with statin. Patient remains dependent on transvenous pacer though this may be improved in the coming days with perfusion and revitalization of SA/AV rom. Will continue to monitor closely in the ICU given her need for transvenous pacing with potential transition to permanent pacemaker later this week or early next week based on response to therapy. Patient's cardiogenic shock has now resolved with continued improvement in her mentation though she remains tired than baseline per report by family/patient. Renal function remains adequate to allow expected contrast introduced during left heart catheterization may need to mild nephropathy, will promote p.o. intake and she was adequately volume resuscitated to ensure renal perfusion for her MARIE. Total critical care time: I personally spent 35 minutes for review of physiologic parameters, directing plan of care throughout the day, coordination of care with other specialties, and counseling patient and family at bedside. This is exclusive of time spent teaching housestaff or performing any separate billable procedures. Patient continues to require critical care services for acute coronary syndrome complicated by complete AV block depending on transvenous pacing. Patient remains at high risk for further morbidity and mortality without prompt intervention only available in the ICU setting.
--- NOTE | 2024-08-05 16:05 | PC.SS ---
Addendum entered and electronically signed by BENY Suarez 08/07/24 15:05: Patient requesting hospital bed upon discharge. Original Note: HOSPICE PHYSICIAN conducted bedside contact with the patient conduct initial assessment and to discuss discharge planning. Patient confirmed demographic information. Patient resides at home with son Taqueria Stevens . Patient utilizes a walker to assist with ambulation. Patient does not utilize home oxygen. Currently on 4L oxygen. Patient describes the ability to complete ADL?s independently. Patient identified son, Taqueria Stevens; as medical surrogate decision maker. Patient utilizes [facility] for PCP services. Patient utilizes [facility] for medication services. Plan is for the patient to return home at the time of discharge. Patient requesting hospital bed upon discharge. If home health recommended patient receptive to resource. No preferred agency identified. Family will provide transportation on behalf of the patient. No discharge needs identified by the patient. No further intervention required at this time, clinical social worker will be available to address any further concerns. Next of Kin: Taqueria Sandovaloza D/C Plan: Home
[2024-08-05] MEDS: INSULIN LISPRO (AdmeLOG) 1 UNIT/0.01 ML UNIT SC ×2 (16:43→20:47)
[2024-08-05] MEDS: ATORVASTATIN CALCIUM 20 MG TABLET 40 MG PO (20:46)
[2024-08-05] MEDS: TICAGRELOR 90 MG TABLET PO (20:47)
--- NOTE | 2024-08-05 20:57 | ESPR_ITS ---
RE: KIMBERLY BACH : 1955 DATE OF SERVICE: 08/05/2024 HISTORY OF PRESENT ILLNESS: The patient is a 69-year-old lady admitted to the hospital with complete heart block yesterday, found to have significant troponin elevation and acute myocardial infractions. Coronary angiogram showed 99% stenosis of the right coronary artery, mid RCA, clinically doing well now following procedure, she remains 100% ventricular paced and reduced the pacing down to 40. No escape whatsoever, only _p waves complete heart block. She is clinically otherwise doing well, no shortness of breath or chest pain. OBJECTIVE: Vital Signs: Stable. Blood pressure 112/76. Pulse rate is 70. Neck: Supple. Lungs: Decreased breath sounds. No rales or rhonchi. Heart: Sounds regular. . LABORATORY DATA: Showed hemoglobin 8.5 . Hematocrit 24, may be dilution. Chemistry panel showed creatinine of 1.9, BUN 28. IMPRESSION: 1. Acute inferior wall myocardial infarction with complete heart block, underwent PCI stent placement in RCA, drug eluting stent. 2. Diabetes mellitus. 3. Hypertension. 4. Complete heart block, significant myocardial infarction, not improving, still pacemaker dependent. RECOMMENDATIONS: 1. We will continue to monitor for another day. the pacemaker, we had to plan on a permanent pacemaker prior to discharge. I have to hold _brilint for a 3 days before I do it. DT: 17:47:38 TT: 20:36:00 Ref: [id number] - TID: [id number] MTDD
[2024-08-06] VITALS (30 sets, daily range): BP systolic 97–150; BP diastolic 35–83; PULSE 57–84; RESP 14–95; TEMP 36.1–36.9; O2SAT 90–97; BMI 25.9
[2024-08-06] MEDS: ACETAMINOPHEN 325 MG TABLET 650 MG PO ×2 (05:26→13:54)
[2024-08-06 06:03] LABS: Basophils % (Auto) 0 % (0-2.5); Eosinophils % (Auto) 0 % (0-10); Hematocrit 24.8 % (36.0-46.0); Immature Granulocytes % (Auto) 1 % (0-0); Immature Granulocytes Auto 0.06 Thou/mm3 (0.00-0.00); Lymphocytes # (Auto) 1.2 Thou/mm3 (1.0-4.8); Lymphocytes % (Auto) 11 % (10-50); Mean Corpuscular HGB Conc 33.1 g/dl (31.0-37.0); Mean Corpuscular Hemoglobin 29.1 pg (25.0-35.0); Mean Corpuscular Volume 88 fL (80-100); Monocytes # (Auto) 0.8 Thou/mm3 (0.0-0.8); Monocytes % (Auto) 7 % (0-12); Neutrophils # (Auto) 8.5 Thou/mm3 (1.8-7.7); Neutrophils % (Auto) 81 % (37-80); Nucleated Red Blood Cell % 0 /100 WBC (0); Platelet Count 213 Thou/mm3 (140-440); RDW Standard Deviation 46.6 fL (36.4-46.3); Red Blood Count 2.82 Miln/mm3 (4.00-5.20); White Blood Count 10.5 Thou/mm3 (3.6-11.0)
[2024-08-06 06:06] LABS: Hemoglobin 8.2 g/dL (12.0-16.0)
[2024-08-06 06:16] LABS: INR 1.1 (0.9-1.3); Prothrombin Time 12.4 Seconds (9.0-12.2)
[2024-08-06 06:19] LABS: Alanine Aminotransferase 183 U/L (10-49); Albumin, Serum 3.4 gm/dL (3.4-4.8); Albumin/Globulin Ratio 1.3 (1.2-2.2); Alkaline Phosphatase 104 U/L (46-116); Anion Gap 10 (7-16); Aspartate Amino Transferase 162 U/L (0-34); BUN/Creatinine Ratio 19 Ratio (12-20); Bilirubin,Total 0.4 mg/dL (0.3-1.2); Blood Urea Nitrogen 35 mg/dL (9-23); Calcium 8.7 mg/dL (8.3-10.6); Calcium (Corrected) 9.2 mg/dL (8.5-10.1); Carbon Dioxide 19.7 mMol/L (20.0-31.0); Chloride 106 mMol/L (98-107); Creatinine (Component) 1.8 mg/dL (0.6-1.3); Estimated Creatinine Clearance 24.9 mL/min (>60); Globulin 2.7 gm/dL (2.3-3.5); Glucose 125 mg/dL (74-106); Osmolality,Calculated 280 (275-295); Potassium 4.5 mMol/L (3.4-5.1); Sodium 136 mMol/L (136-145); Total Protein 6.1 gm/dL (5.7-8.2); eGFR 30 See Note
[2024-08-06 06:21] LABS: Partial Thromboplastin Time 29.3 Seconds (22.0-36.0)
[2024-08-06] MEDS: INSULIN LISPRO (AdmeLOG) 1 UNIT/0.01 ML UNIT SC ×3 (07:40→17:03)
[2024-08-06] MEDS: PANTOPRAZOLE 40 MG TABLET PO (08:55)
[2024-08-06] MEDS: ASPIRIN 81 MG CHEW PO (08:55)
[2024-08-06] MEDS: TICAGRELOR 90 MG TABLET PO ×2 (08:55→20:17)
[2024-08-06 09:48] LABS: Magnesium 2.2 mg/dL (1.6-2.6)
--- NOTE | 2024-08-06 13:57 | EKG_ITS ---
[facility] (Formerly [facility]) Test Date: 2024-08-06 Pat Name: KIMBERLY BACH Department: Room: S256A Gender: Female Circulation Tender: FLOR : 1955 Requested By: Brennan Amador Order Number: [id number] Reading MD: Brennan Amador Measurements Intervals [place] Rate: 74 P: 217 [place]: 305 QRS: 37 QRSD: 102 T: 0 QT: 405 QTc: 452 Interpretive Statements SINUS RHYTHM WITH FIRST DEGREE AV BLOCK LOW QRS VOLTAGE IN PRECORDIAL LEADS SEPTAL MYOCARDIAL INFARCTION , OF INDETERMINATE AGE MODERATE T-WAVE ABNORMALITY, CONSIDER ANTEROLATERAL ISCHEMIA Compared to ECG 08/04/2024 19:25:47 First degree AV block now present Low QRS voltage now present Myocardial infarct finding now present T-wave abnormality now present Possible ischemia now present Ventricular-paced complex(es) or rhythm no longer present /store/S0/[id number]
--- NOTE | 2024-08-06 17:42 | ESPR_ITS ---
Documentation for date of: 08/06/24 Subjective Subjective Interval history: 69-year-old female with history of hypertension, CVA with residual left-sided weakness, dyslipidemia, lyj-rknxbvm-ftcliefdm diabetes who presented to the ED from home with chief complaint of severe lethargy and weakness. Patient was in her usual state of health until yesterday when she began feeling unusually tired, went to bed early. During the night patient went to use the bathroom and felt dizzy upon standing. This morning patient was difficult to arouse, patient's family called EMS to have patient taken to the ER. Upon arrival to ER patient was severely bradycardic and altered. ED course: Labs significant for: Potassium 5.4, bicarb 18, BUN 24, creatinine 2.1, EGFR 25, lactic acid 7.4, troponin 0.8, BNP 773. Imaging significant for: Chest x-ray unremarkable. EKG showed severe bradycardia with heart block. On arrival to ED patient had heart rate 25, blood pressure undetectable. Severe lactic acidosis. Patient received percutaneous pacing with improvement in heart rate, blood pressure, mentation. Patient was taken to [facility] emergently for transvenous pacer. Patient brought to ICU for management of transvenous pacer. 08/05/2024: Patient seen and examined at bedside. Troponins uptrended overnight, peaking at 67.8. Patient started on heparin drip, was taken to [facility] for left heart catheterization, selective coronary angiogram, and left ventricular angiogram. Found to have 99% stenosis of right coronary artery, underwent successful PCI stent placement. Started Brilinta and aspirin. Patient remains on transvenous pacing, will continue to be monitored in the ICU. Currently denies chest pain or SOB. 08/06/2024: Patient seen and examined at bedside. Maintaining heart rate on transvenous pacer. Denies shortness of breath or chest pain. Nausea improved, patient reports pain with swallowing unless she thoroughly chews food. Dysphagia level 2 modification added to diet order. Transvenous pacer settings decreased to 56 bpm, patient struggles to maintain heart rate greater than pacer. Patient occasionally going into junctional rhythm with increased heart rate before falling back to 56 bpm. EKG ordered, did not see clear signs of P waves at the time. Cardiac monitoring later in the day showed first-degree AV block. Exam Vital Signs Temp Pulse Resp BP Pulse Ox O2 Del Method O2 Flow Rate 98.4 F 73 27 H 97/65 95 Nasal Cannula 3 08/06/24 16:00 08/06/24 17:00 08/06/24 17:00 08/06/24 16:00 08/06/24 17:00 08/06/24 06:01 08/06/24 06:01 Narrative Exam PE: Gen: Well-developed and well-nourished. HEENT: NCAT, PERRLA, EOMI, MMM, anicteric conjunctivae. CVS: normal S1 and S2. RRR-paced. No M/R/G. Resp: CTA B/L. No rhonchi, rales, crackles or wheezing. Abd: soft, non-tender, non-distended. MSK: Good ROM in BUE & BLE. No edema or rash. Neuro: CN II-XII grossly intact. Strength 5/5 in RUE & RLE. Alert and oriented x3. Strength 4/5 in left upper and lower extremities, residual deficit from CVA. Objective Labs 08/07/24 04:40 08/07/24 04:40 Labs: Laboratory Results - last 24 hr 08/06/24 08/06/24 05:10 08:50 WBC 10.5 RBC 2.82 L Hgb 8.2 L Hct 24.8 L MCV 88 MCH 29.1 MCHC 33.1 RDW Std Deviation 46.6 H Plt Count 213 Neut % (Auto) 81 H Lymph % (Auto) 11 [place] % (Auto) 7 Eos % (Auto) 0 Baso % (Auto) 0 Neut # (Auto) 8.5 H Lymph # (Auto) 1.2 [place] # (Auto) 0.8 Eos # (Auto) 0.0 Baso # (Auto) 0.0 Immature Gran # (Auto) 0.06 H Absolute Nucleated RBC 0.00 Immature Gran % 1 H Nucleated RBC % 0 PT 12.4 H INR 1.1 APTT 29.3 D Sodium 136 Potassium 4.5 Chloride 106 Carbon Dioxide 19.7 L Anion Gap 10 BUN 35 H Creatinine 1.8 H Estim Creat Clear Calc 24.9 L eGFR 30 L BUN/Creatinine Ratio 19 Glucose 125 H Calculated Osmolality 280 Calcium 8.7 Corrected Calcium 9.2 Magnesium 2.2 Total Bilirubin 0.4 AST 162 H ALT 183 H Alkaline Phosphatase 104 Total Protein 6.1 Albumin 3.4 Globulin 2.7 Albumin/Globulin Ratio 1.3 Quality Measures Quality Measures VTE prophylaxis Advance care planning discussed with:: patient Assessment & Plan Assessment Current Active Medications: Generic Name Dose Route Start Last Admin Trade Name Freq PRN Reason Stop Dose Admin Acetaminophen 650 mg 08/04/24 15:20 08/06/24 13:54 Acetaminophen 325 Mg Tablet PO 09/03/24 15:19 650 mg Q4HR PRN Administration PAIN SCALE 1-3 (mild Acetaminophen 650 mg 08/04/24 15:20 Acetaminophen Supp 650 Mg Supp [place] 09/03/24 15:19 Q4HR PRN PAIN SCALE 1-3 (mild Al Hydrox/Mg Hydrox/Simethicone 30 ml 08/04/24 15:20 Mg Hyd/Al Hyd/Wilbert (Maalox Reg) Susp 30 Ml Udc PO 09/03/24 15:19 Q4HR PRN Heartburn or Upset Stomach Aspirin 81 mg 08/06/24 09:00 08/06/24 08:55 Aspirin 81 Mg Chew PO 09/05/24 08:59 81 mg QDAY YADIRA Administration Atorvastatin Calcium 40 mg 08/05/24 21:00 08/05/24 20:46 Atorvastatin Calcium 20 Mg Tablet PO 09/04/24 20:59 40 mg HS YADIRA Administration Dextrose 25 ml 08/04/24 15:24 Dextrose 50%-Water Inj 50 Ml Syringe IV 09/03/24 15:23 Q15MIN PRN BG 50-70 responsive npo pt Dextrose 50 ml 08/04/24 15:24 Dextrose 50%-Water Inj 50 Ml Syringe IV 09/03/24 15:23 Q15MIN PRN BG <50 OR BG <70 & pt unresponsive Insulin Human Lispro 0 unit 08/05/24 17:00 08/06/24 17:03 Insulin Lispro (Admelog) 1 Unit/0.01 Ml Unit SC 09/04/24 16:59 1 unit ACHS YADIRA Administration Protocol Magnesium Hydroxide 30 ml 08/04/24 15:20 Milk Of Magnesia Susp 30 Ml Udc PO 09/03/24 15:19 QDAY PRN CONSTIPATION Nitroglycerin 0.4 mg 08/04/24 15:20 Nitroglycerin 0.4 Mg Subl Btl #25 SL Q5MIN PRN CHEST PAIN Ondansetron HCl 4 mg 08/04/24 18:30 08/05/24 15:18 Ondansetron Inj 2 Mg/Ml Inj 2 Ml IV 09/03/24 18:29 4 mg Q6HR PRN Administration NAUSEA OR VOMITING Protocol Pantoprazole Sodium 40 mg 08/06/24 09:00 08/06/24 08:55 Pantoprazole 40 Mg Tablet PO 09/05/24 08:59 40 mg QDAY YADIRA Administration Ticagrelor 90 mg 08/05/24 21:00 08/06/24 08:55 Ticagrelor 90 Mg Tablet PO 09/04/24 20:59 90 mg BID YADIRA Administration Plan 69-year-old female with history of hypertension dyslipidemia, txv-fwpofoi-mahqsccln diabetes who presents the emergency department with generalized weakness, admitted to ICU for management of transvenous pacer for severe symptomatic bradycardia. Neuro: #CVA history Patient has history of CVA 8 years ago with residual deficits, left-sided weakness. Cardio: #NSTEMI s/p PCI #Symptomatic bradycardia Patient presented with complaint of lethargy and weakness. Cold extremities. Found to be critically bradycardic with heart rate 25, BP undetectable. Patient unresponsive to atropine and dobutamine. Patient taken to [facility] for emergent placement of transvenous pacer. Patient troponin elevated, peaked at 67.8. Patient taken to [facility] for PCI and left heart catheterization, found to have right coronary artery stenosis of 95%, stent successfully placed. Patient base heart rate tested, patient still fully dependent on pacemaker. Pacemaker rate decreased to 56 bpm, patient has difficulty maintaining rate above pacer. Cardiac monitoring shows first-degree AV block. -Cardiac monitoring -Maintain transvenous pacer -Aspirin and Brilinta -Statin 40 -Cardio consulted, recs appreciated -If no recovery in heart rate, plans for permanent pacemaker Pulm: #No active issues GI: #Transaminitis Possible shock liver due to prolonged ischemia secondary to symptomatic bradycardia. Downtrending -Avoid hepatotoxins -Monitor Renal: #MARIE, resolving Prerenal due to poor perfusion, secondary to bradycardia. BUN 24, creatinine 2.1, EGFR 25. All above patient's baseline based on previous labs. Renal labs improved with fluids. -Renally dose meds -Avoid nephrotoxins -Monitor daily labs #Lactic acidosis, resolved Patient has elevated lactate 7.4, serum bicarb 18. Likely due to poor perfusion from symptomatic bradycardia. Bradycardia resolved transvenous pacer. Patient received 2 L bolus normal saline. Resolved with IVF Endo: #Type 2 diabetes, [id number] Patient has history of kgp-dyledac-bilmwzcnp diabetes. A1c was 6.9% as of 08/05/2024. -Insulin sliding scale Heme: #Anemia Patient has mild anemia, hemoglobin 9.1. No signs of active bleeding. -Monitor ID: #No active issues Skin/MSK: #No active issues ICU Health maintenance: Mechanical ventilation: No Sedation: Now Diet: N.p.o. DVT ppx: Heparin GI ppx: No Winston: No IV lines: Peripheral IV Central line: No Arterial line: No Code status: Full code Plan of care discussed with attending Dr. Corona. Brennan Melendez MD PGY-1 Attending Provider Attestation/Addendum Patient seen and examined with above resident, Brennan Melendez MD. I agree with the findings, assessment, and plan of care as documented except for any differences below. Patient continues to improve slowly with resolution of her cardiogenic shock though she remains at risk for development of complete heart block in the setting of ACS/NSTEMI. Patient continues to have transvenous pacer, I did turn down the rate this morning the patient does have an accelerated junctional rhythm with intermittent pacing. Patient remains on dual antiplatelet therapy and will be adjusted based on recommendations by switchman supervisor they will consider potentially placing permanent pacemaker should this remain stable or worsen. Patient on EKG did not have any distinct P waves though this may develop with time as she continues to improve from the infarction. Patient otherwise remains hemodynamically stable and tolerating diet. Signs of endorgan damage continue to improve with normalization of urine output and mentation back to baseline. Total critical care time: I personally spent 30 minutes for review of physiologic parameters, directing plan of care throughout the day, coordination of care with other subspecialists, and counseling patient at the bedside. This is exclusive of time spent teaching housestaff or performing separate billable procedures.
--- NOTE | 2024-08-06 18:09 | PC.NURSE ---
removed coban dressing from r.wrist,no bleeding noted,tegaderm dressing intact.
[2024-08-06] MEDS: ATORVASTATIN CALCIUM 20 MG TABLET 40 MG PO (20:17)
[2024-08-07] VITALS (21 sets, daily range): BP systolic 101–157; BP diastolic 44–90; PULSE 71–91; RESP 16–33; TEMP 36.7–36.9; O2SAT 91–97; BMI 26.0
--- NOTE | 2024-08-07 00:56 | ESPR_ITS ---
RE: KIMBERLY BACH : 1955 DATE OF SERVICE: 08/06/2024 SUBJECTIVE: The patient was admitted to the hospital with acute myocardial infarction, complete heart block, who underwent stent placement of the RCA yesterday. Hemoglobin remains stable at 8.2. Her heart rate improved today. She is on her own with junctional rhythm and faster heart rate 75 beats per minute. She is clinically doing well. No chest pain or shortness of breath. OBJECTIVE: Vital Signs: Blood pressure 137/70, pulse rate is 77. Neck: Supple. No JVD. Lungs: Decreased breath sounds. No rales or rhonchi. Heart: Hear sounds regular. No gallops. Abdomen: Thin ans soft. Extremities: No edema. ASSESSMENT: 1. Complete heart block, resolved. 2. Acute inferior wall myocardial infarction, underwent stent placement of right coronary artery. 3. Anemia. RECOMMENDATIONS: Continue dual antibiotic drug therapy. Unlikely the patient will require a pacemaker implantation tomorrow, if she remains in good rhythm, we will discontinue the pacemaker and possibly will not require a permanent pacemaker at this time. DT: 23:09:17 TT: 00:00:00 Ref: [id number] - TID: [id number] [email or web address]
[2024-08-07] MEDS: ACETAMINOPHEN 325 MG TABLET 650 MG PO (03:17)
[2024-08-07 05:30] LABS: Basophils % (Auto) 0 % (0-2.5); Eosinophils # (Auto) 0.1 Thou/mm3 (0.0-0.5); Eosinophils % (Auto) 1 % (0-10); Hematocrit 24.4 % (36.0-46.0); Immature Granulocytes % (Auto) 1 % (0-0); Immature Granulocytes Auto 0.05 Thou/mm3 (0.00-0.00); Lymphocytes # (Auto) 0.8 Thou/mm3 (1.0-4.8); Lymphocytes % (Auto) 8 % (10-50); Mean Corpuscular HGB Conc 33.2 g/dl (31.0-37.0); Mean Corpuscular Hemoglobin 28.8 pg (25.0-35.0); Mean Corpuscular Volume 87 fL (80-100); Monocytes # (Auto) 0.5 Thou/mm3 (0.0-0.8); Monocytes % (Auto) 5 % (0-12); Neutrophils # (Auto) 8.9 Thou/mm3 (1.8-7.7); Neutrophils % (Auto) 86 % (37-80); Nucleated Red Blood Cell % 0 /100 WBC (0); Platelet Count 222 Thou/mm3 (140-440); Red Blood Count 2.81 Miln/mm3 (4.00-5.20); White Blood Count 10.4 Thou/mm3 (3.6-11.0)
[2024-08-07 05:47] LABS: Alanine Aminotransferase 121 U/L (10-49); Alkaline Phosphatase 102 U/L (46-116); Anion Gap 9 (7-16); Aspartate Amino Transferase 79 U/L (0-34); BUN/Creatinine Ratio 19 Ratio (12-20); Bilirubin,Total 0.6 mg/dL (0.3-1.2); Blood Urea Nitrogen 31 mg/dL (9-23); Calcium 8.7 mg/dL (8.3-10.6); Carbon Dioxide 20.9 mMol/L (20.0-31.0); Chloride 107 mMol/L (98-107); Creatinine (Component) 1.6 mg/dL (0.6-1.3); Glucose 145 mg/dL (74-106); Magnesium 2.2 mg/dL (1.6-2.6); Osmolality,Calculated 283 (275-295); Phosphorous 2.8 mg/dL (2.4-5.1); Potassium 4.2 mMol/L (3.4-5.1); Sodium 137 mMol/L (136-145); Total Protein 6.5 gm/dL (5.7-8.2); eGFR 34 See Note
[2024-08-07 06:56] LABS: Hemoglobin 8.1 g/dL (12.0-16.0)
[2024-08-07 06:59] LABS: Albumin, Serum 3.4 gm/dL (3.4-4.8)
[2024-08-07 07:13] LABS: Albumin/Globulin Ratio 1.1 (1.2-2.2); Calcium (Corrected) 9.2 mg/dL (8.5-10.1); Globulin 3.1 gm/dL (2.3-3.5)
[2024-08-07] MEDS: ASPIRIN 81 MG CHEW PO (08:00)
[2024-08-07] MEDS: PANTOPRAZOLE 40 MG TABLET PO (08:00)
[2024-08-07] MEDS: TICAGRELOR 90 MG TABLET PO ×2 (08:00→20:28)
[2024-08-07 09:51] LABS: Cardiac Risk Estimate 5.3 RATIO (3.7-5.6); Cholesterol 133 mg/dL (132-200); HDL Cholesterol 25 mg/dL (40-60); LDL Cholesterol,Calculated 81 mg/dL (0-130); Triglycerides 134 mg/dL (30-150)
--- NOTE | 2024-08-07 10:12 | ESPR_ITS ---
Documentation for date of: 08/07/24 Subjective Subjective Interval history: 69-year-old female with history of hypertension, CVA with residual left-sided weakness, dyslipidemia, vnc-fecuqba-bxutlizhf diabetes who presented to the ED from home with chief complaint of severe lethargy and weakness. Patient was in her usual state of health until yesterday when she began feeling unusually tired, went to bed early. During the night patient went to use the bathroom and felt dizzy upon standing. This morning patient was difficult to arouse, patient's family called EMS to have patient taken to the ER. Upon arrival to ER patient was severely bradycardic and altered. ED course: Labs significant for: Potassium 5.4, bicarb 18, BUN 24, creatinine 2.1, EGFR 25, lactic acid 7.4, troponin 0.8, BNP 773. Imaging significant for: Chest x-ray unremarkable. EKG showed severe bradycardia with heart block. On arrival to ED patient had heart rate 25, blood pressure undetectable. Severe lactic acidosis. Patient received percutaneous pacing with improvement in heart rate, blood pressure, mentation. Patient was taken to [facility] emergently for transvenous pacer. Patient brought to ICU for management of transvenous pacer. 08/05/2024: Patient seen and examined at bedside. Troponins uptrended overnight, peaking at 67.8. Patient started on heparin drip, was taken to labor arbitrator hearing office for left heart catheterization, selective coronary angiogram, and left ventricular angiogram. Found to have 99% stenosis of right coronary artery, underwent successful PCI stent placement. Started Brilinta and aspirin. Patient remains on transvenous pacing, will continue to be monitored in the ICU. Currently denies chest pain or SOB. 08/06/2024: Patient seen and examined at bedside. Maintaining heart rate on transvenous pacer. Denies shortness of breath or chest pain. Nausea improved, patient reports pain with swallowing unless she thoroughly chews food. Dysphagia level 2 modification added to diet order. Transvenous pacer settings decreased to 56 bpm, patient struggles to maintain heart rate greater than pacer. Patient occasionally going into junctional rhythm with increased heart rate before falling back to 56 bpm. EKG ordered, did not see clear signs of P waves at the time. Cardiac monitoring later in the day showed first-degree AV block. 08/07/2024: Patient seen and examined at bedside. Maintaining good urine output. Denies shortness of breath or chest pain. Patient tolerating meals well, no nausea, vomiting, or pain. Patient maintaining heart rate >80 bpm without relying on pacer. Transvenous pacer removed at bedside by Dr. Hui without incident. Kidney function improving slowly, encouraged oral hydration. Patient stable for downgrade to telemetry. Exam Vital Signs Temp Pulse Resp BP Pulse Ox O2 Del Method O2 Flow Rate 98.0 F 77 24 H 136/48 H 94 L Nasal Cannula 2 08/07/24 07:02 08/07/24 09:22 08/07/24 09:22 08/07/24 09:01 08/07/24 09:22 08/07/24 03:01 08/07/24 09:22 Objective Labs 08/07/24 04:40 08/07/24 04:40 Labs: Laboratory Results - last 24 hr 08/07/24 04:40 WBC 10.4 RBC 2.81 L Hgb 8.1 L Hct 24.4 L MCV 87 MCH 28.8 MCHC 33.2 RDW Std Deviation 46.0 Plt Count 222 Neut % (Auto) 86 H Lymph % (Auto) 8 L [place] % (Auto) 5 Eos % (Auto) 1 Baso % (Auto) 0 Neut # (Auto) 8.9 H Lymph # (Auto) 0.8 L [place] # (Auto) 0.5 Eos # (Auto) 0.1 Baso # (Auto) 0.0 Immature Gran # (Auto) 0.05 H Absolute Nucleated RBC 0.00 Immature Gran % 1 H Nucleated RBC % 0 Sodium 137 Potassium 4.2 Chloride 107 Carbon Dioxide 20.9 Anion Gap 9 BUN 31 H Creatinine 1.6 H Estim Creat Clear Calc 28.0 L eGFR 34 L BUN/Creatinine Ratio 19 Glucose 145 H Calculated Osmolality 283 Calcium 8.7 Corrected Calcium 9.2 Phosphorus 2.8 Magnesium 2.2 Total Bilirubin 0.6 AST 79 H ALT 121 H Alkaline Phosphatase 102 Total Protein 6.5 Albumin 3.4 Globulin 3.1 Albumin/Globulin Ratio 1.1 L Triglycerides 134 Cholesterol 133 LDL Cholesterol, Calc 81 HDL Cholesterol 25 L Cholesterol/HDL Ratio 5.3 Quality Measures Quality Measures VTE prophylaxis Advance care planning discussed with:: patient Assessment & Plan Assessment Current Active Medications: Generic Name Dose Route Start Last Admin Trade Name Freq PRN Reason Stop Dose Admin Acetaminophen 650 mg 08/04/24 15:20 08/07/24 03:17 Acetaminophen 325 Mg Tablet PO 09/03/24 15:19 650 mg Q4HR PRN Administration PAIN SCALE 1-3 (mild Acetaminophen 650 mg 08/04/24 15:20 Acetaminophen Supp 650 Mg Supp [place] 09/03/24 15:19 Q4HR PRN PAIN SCALE 1-3 (mild Al Hydrox/Mg Hydrox/Simethicone 30 ml 08/04/24 15:20 Mg Hyd/Al Hyd/Wilbert (Maalox Reg) Susp 30 Ml Udc PO 09/03/24 15:19 Q4HR PRN Heartburn or Upset Stomach Aspirin 81 mg 08/06/24 09:00 08/07/24 08:00 Aspirin 81 Mg Chew PO 09/05/24 08:59 81 mg QDAY YADIRA Administration Atorvastatin Calcium 40 mg 08/05/24 21:00 08/06/24 20:17 Atorvastatin Calcium 20 Mg Tablet PO 09/04/24 20:59 40 mg HS YADIRA Administration Dextrose 25 ml 08/04/24 15:24 Dextrose 50%-Water Inj 50 Ml Syringe IV 09/03/24 15:23 Q15MIN PRN BG 50-70 responsive npo pt Dextrose 50 ml 08/04/24 15:24 Dextrose 50%-Water Inj 50 Ml Syringe IV 09/03/24 15:23 Q15MIN PRN BG <50 OR BG <70 & pt unresponsive Insulin Human Lispro 0 unit 08/05/24 17:00 08/07/24 07:30 Insulin Lispro (Admelog) 1 Unit/0.01 Ml Unit SC 09/04/24 16:59 Not Given ACHS YADIRA Protocol Magnesium Hydroxide 30 ml 08/04/24 15:20 Milk Of Magnesia Susp 30 Ml Udc PO 09/03/24 15:19 QDAY PRN CONSTIPATION Ondansetron HCl 4 mg 08/04/24 18:30 08/05/24 15:18 Ondansetron Inj 2 Mg/Ml Inj 2 Ml IV 09/03/24 18:29 4 mg Q6HR PRN Administration NAUSEA OR VOMITING Protocol Ticagrelor 90 mg 08/05/24 21:00 08/07/24 08:00 Ticagrelor 90 Mg Tablet PO 09/04/24 20:59 90 mg BID YADIRA Administration Plan 69-year-old female with history of hypertension dyslipidemia, ouk-ceviyse-eubxyurol diabetes who presents the emergency department with generalized weakness, admitted to ICU for management of transvenous pacer for severe symptomatic bradycardia. Neuro: #CVA history Patient has history of CVA 8 years ago with residual deficits, left-sided weakness. Cardio: #NSTEMI s/p PCI #Symptomatic bradycardia Patient presented with complaint of lethargy and weakness. Cold extremities. Found to be critically bradycardic with heart rate 25, BP undetectable. Patient unresponsive to atropine and dobutamine. Patient taken to [facility] for emergent placement of transvenous pacer. Patient troponin elevated, peaked at 67.8. Patient taken to [facility] for PCI and left heart catheterization, found to have right coronary artery stenosis of 95%, stent successfully placed. Patient base heart rate tested, patient still fully dependent on pacemaker. Pacemaker rate decreased to 56 bpm, patient has difficulty maintaining rate above pacer. Cardiac monitoring shows first-degree AV block. Patient maintaining rate above pacer. TVP removed by dental manager without incident. -Cardiac monitoring -Aspirin and Brilinta -Statin 40 -Cardio consulted, recs appreciated -Stable for downgrade to telemetry Pulm: #No active issues GI: #Transaminitis Possible shock liver due to prolonged ischemia secondary to symptomatic bradycardia. Downtrending -Avoid hepatotoxins -Monitor Renal: #MARIE, resolving Prerenal due to poor perfusion, secondary to bradycardia. BUN 24, creatinine 2.1, EGFR 25. All above patient's baseline based on previous labs. Renal labs improved with fluids. -Renally dose meds -Avoid nephrotoxins -Monitor daily labs -encourage oral hydration. Endo: #Type 2 diabetes, [id number]-oxqwfdqnt Patient has history of sxy-xzmngme-ojdsggltb diabetes. A1c was 6.9% as of 08/05/2024. -Insulin sliding scale Heme: #Anemia Patient has mild anemia, hemoglobin 9.1. No signs of active bleeding. -Monitor ID: #No active issues Skin/MSK: #No active issues ICU Health maintenance: Mechanical ventilation: No Sedation: Now Diet: Csrdiac/carb consistent/dysphagia level 2 DVT ppx: Heparin GI ppx: No Winston: No IV lines: Peripheral IV Central line: No Arterial line: No Code status: Full code Plan of care discussed with attending Dr. Corona. Brennan Melendez MD PGY-1 Attending Provider Attestation/Addendum Patient seen and examined with above resident, Brennan Melendez MD. I agree with the findings, assessment, and plan of care as documented. Patient with continued improvement multiple days out from ACS. Both transvenous pacer and catheter were removed by cardiology this morning. Plan for initiation of beta- dipti, will hold off on additional 24 hours as she now has returned to sinus rhythm with heart rate in the mid 80s. I agree that she will need dual antiplatelet therapy along with statin and beta-blockade in the long run but will gradually introduce all agents. Patient now stable from a hemodynamic perspective with no longer need for emergent pacing. Patient will be transferred to medicine [facility] for ongoing management for optimization prior to discharge. Will check lipid panel though patient will need to be on statin nevertheless for secondary prevention. Patient updated on bedside continues to have improvement in both renal and mental function. Suspect slow improvement from contrast-induced and cardiogenic induced kidney injury. Total critical care time: I personally spent 35 minutes for review of physiologic parameters, directing plan of care throughout the day, coordination of care with other specialists, and counseling patient at bedside. This is exclusive of time spent teaching of staff or performing any separate billable procedures.
[2024-08-07] MEDS: INSULIN LISPRO (AdmeLOG) 1 UNIT/0.01 ML UNIT SC ×3 (11:00→20:35)
--- NOTE | 2024-08-07 13:40 | PD.RESEVENT ---
Documentation for date of: 08/07/24 Event Note Event Note: Hospitalist team received an ICU downgrade, 69-year-old male Sandra Hernandez, with PMHx of HTN, CVA with residual left-sided deficit 8 years ago, diabetes, who was admitted to ICU for complete heart block treated with transcutaneous pacemaker, and non-STEMI. Troponins were 67. He underwent cath showing 90% stenosis of right RCA. Currently on ASPIRIN, TICAGRELOR, and statin. Cardiology will reevaluate today for possibly starting METOPROLOL tomorrow. Patient on dysphagia diet secondary to new onset dysphagia which will need further workup. Hospitalist care will assume care tomorrow 08/08/2024 in AM. Patient case was discussed with attending, Dr. Antonio Clarke DO and senior residents Dr. Norris and Dr. Cho. Skyler Fish DO PGYI
--- NOTE | 2024-08-07 15:02 | PC.SS ---
Update: Temporary pacemaker has been removed. Patient has been downgraded to Tele.
[2024-08-07] MEDS: ATORVASTATIN CALCIUM 20 MG TABLET 40 MG PO (20:28)
--- NOTE | 2024-08-07 23:13 | ESPR_ITS ---
RE: KIMBERLY BACH : 1955 DATE OF SERVICE: 08/07/2024 _ heart rate improved to 80 beats per minutes, sinus rhythm. Not having any chest pain, shortness of breath. Temporary pacemaker is removed completely. Not having any other issues. She is not having angina. OBJECTIVE: Vital Signs: Her blood pressure is normal 130/80, heart rate 70, respirations 16, temperature normal Lungs: clear_ with decreased breath sounds. Heart: Heart sounds regular. No gallops. Abdomen: Thin and soft. Extremities: No edema. ASSESSMENT: 1. Status post acute inferior wall myocardial infarction, underwent stent placement, RCA. 2. Complete heart block, resolved. 3. Diabetes mellitus. RECOMMENDATIONS: 1. Continue aspirin and Plavix. 2. We will also start on low-dose beta-dipti 25 mg metoprolol as tolerated and also atorvastatin. 3. The patient can be transferred to telemetry. DT: 21:41:31 TT: 23:04:00 Ref: [id number] - TID: [id number] MTD
[2024-08-08] VITALS (9 sets, daily range): BP systolic 121–145; BP diastolic 65–79; PULSE 73–92; RESP 16–27; TEMP 36.1–36.7; O2SAT 91–97; BMI 26.1
[2024-08-08 05:22] LABS: Basophils % (Auto) 0 % (0-2.5); Eosinophils # (Auto) 0.1 Thou/mm3 (0.0-0.5); Eosinophils % (Auto) 1 % (0-10); Hematocrit 24.4 % (36.0-46.0); Immature Granulocytes % (Auto) 0 % (0-0); Immature Granulocytes Auto 0.03 Thou/mm3 (0.00-0.00); Lymphocytes # (Auto) 1.3 Thou/mm3 (1.0-4.8); Lymphocytes % (Auto) 17 % (10-50); Mean Corpuscular HGB Conc 32.4 g/dl (31.0-37.0); Mean Corpuscular Hemoglobin 28.7 pg (25.0-35.0); Mean Corpuscular Volume 89 fL (80-100); Monocytes # (Auto) 0.6 Thou/mm3 (0.0-0.8); Monocytes % (Auto) 8 % (0-12); Neutrophils # (Auto) 5.5 Thou/mm3 (1.8-7.7); Neutrophils % (Auto) 73 % (37-80); Nucleated Red Blood Cell % 0 /100 WBC (0); Platelet Count 230 Thou/mm3 (140-440); RDW Standard Deviation 46.4 fL (36.4-46.3); Red Blood Count 2.75 Miln/mm3 (4.00-5.20); White Blood Count 7.6 Thou/mm3 (3.6-11.0)
[2024-08-08 05:26] LABS: Hemoglobin 7.9 g/dL (12.0-16.0)
[2024-08-08 05:40] LABS: Alanine Aminotransferase 80 U/L (10-49); Albumin, Serum 3.6 gm/dL (3.4-4.8); Albumin/Globulin Ratio 1.2 (1.2-2.2); Alkaline Phosphatase 92 U/L (46-116); Anion Gap 9 (7-16); Aspartate Amino Transferase 42 U/L (0-34); BUN/Creatinine Ratio 15 Ratio (12-20); Bilirubin,Total 0.7 mg/dL (0.3-1.2); Blood Urea Nitrogen 19 mg/dL (9-23); Calcium 8.7 mg/dL (8.3-10.6); Carbon Dioxide 20.6 mMol/L (20.0-31.0); Chloride 107 mMol/L (98-107); Creatinine (Component) 1.3 mg/dL (0.6-1.3); Estimated Creatinine Clearance 34.6 mL/min (>60); Glucose 102 mg/dL (74-106); Magnesium 2.1 mg/dL (1.6-2.6); Osmolality,Calculated 276 (275-295); Potassium 4.2 mMol/L (3.4-5.1); Sodium 137 mMol/L (136-145); Total Protein 6.6 gm/dL (5.7-8.2); eGFR 44 See Note
[2024-08-08] MEDS: ASPIRIN 81 MG CHEW PO (09:33)
[2024-08-08] MEDS: TICAGRELOR 90 MG TABLET PO ×2 (09:33→20:10)
[2024-08-08] MEDS: INSULIN LISPRO (AdmeLOG) 1 UNIT/0.01 ML UNIT SC ×3 (11:31→20:10)
--- NOTE | 2024-08-08 14:39 | ESPR_ITS ---
<Statement entered by Ceci Hui MD - 08/09/24 14:54> I examined the patient personally evaluated the patient with resident team Dr. Lizett WhatleyPGY2 patient is doing better recommend changing Brilinta started on Plavix instead of Brilinta continue aspirin continue beta-dipti monitor additional day before discharging patient home Documentation for date of: 08/08/24 Subjective Subjective Interval history: Patient seen and examined at bedside. Patient was seen walking with physical therapy, tolerating well, but does not want to go to senior living facility. Patient denies any chest pain or shortness of breath especially on exertion. Patient's vital signs have been stable and has been on 2 L nasal cannula. Patient's hemoglobin also has been stable around 7.9-8.1. Exam Vital Signs Temp Pulse Resp BP Pulse Ox O2 Del Method O2 Flow Rate 96.9 F 74 19 145/79 H 94 L Nasal Cannula 2 08/08/24 12:00 08/08/24 12:00 08/08/24 12:00 08/08/24 12:00 08/08/24 12:00 08/08/24 12:08/08/24 12:00 Narrative Exam General Appearance: Pt in NAD, walking with walker with assistance from PT. Well-developed and nourished. HEENT: NC/AT, no scleral icterus, no conjunctival pallor, MMM Lungs: CTAB, no wheezes or crackles appreciated CVS: RRR, S1/S2 heard, no murmurs or rubs appreciated ABD: Soft, non-tender, non-distended, BS + in all 4 quadrants EXT: no deformity/edema/lesions/cyanosis/clubbing, radial pulses 2+ BL, DP pulses 2 + BL SKIN: Skin exam normal without any rashes. Neuro: A&O x 3. No gross neurological deficits. Motor and sensory grossly intact in B/L UL and LL except for LUE and LLE, which is 4/5. Psych: Appropriate mood and affect Objective Labs 08/08/24 14:32 08/08/24 04:48 Labs: Laboratory Results - last 24 hr 08/08/24 04:48 WBC 7.6 RBC 2.75 L Hgb 7.9 L Hct 24.4 L MCV 89 MCH 28.7 MCHC 32.4 RDW Std Deviation 46.4 H Plt Count 230 Neut % (Auto) 73 Lymph % (Auto) 17 [place] % (Auto) 8 Eos % (Auto) 1 Baso % (Auto) 0 Neut # (Auto) 5.5 Lymph # (Auto) 1.3 [place] # (Auto) 0.6 Eos # (Auto) 0.1 Baso # (Auto) 0.0 Immature Gran # (Auto) 0.03 H Absolute Nucleated RBC 0.00 Immature Gran % 0 Nucleated RBC % 0 Sodium 137 Potassium 4.2 Chloride 107 Carbon Dioxide 20.6 Anion Gap 9 BUN 19 Creatinine 1.3 Estim Creat Clear Calc 34.6 L eGFR 44 L BUN/Creatinine Ratio 15 Glucose 102 Calculated Osmolality 276 Calcium 8.7 Corrected Calcium 9.0 Phosphorus 3.0 Magnesium 2.1 Total Bilirubin 0.7 AST 42 H ALT 80 H Alkaline Phosphatase 92 Total Protein 6.6 Albumin 3.6 Globulin 3.0 Albumin/Globulin Ratio 1.2 Quality Measures Quality Measures VTE prophylaxis Advance care planning discussed with:: patient Assessment & Plan Assessment Current Active Medications: Generic Name Dose Route Start Last Admin Trade Name Freq PRN Reason Stop Dose Admin Acetaminophen 650 mg 08/04/24 15:20 08/07/24 03:17 Acetaminophen 325 Mg Tablet PO 09/03/24 15:19 650 mg Q4HR PRN Administration PAIN SCALE 1-3 (mild Acetaminophen 650 mg 08/04/24 15:20 Acetaminophen Supp 650 Mg Supp [place] 09/03/24 15:19 Q4HR PRN PAIN SCALE 1-3 (mild Al Hydrox/Mg Hydrox/Simethicone 30 ml 08/04/24 15:20 Mg Hyd/Al Hyd/Wilbert (Maalox Reg) Susp 30 Ml Udc PO 09/03/24 15:19 Q4HR PRN Heartburn or Upset Stomach Aspirin 81 mg 08/06/24 09:00 08/08/24 09:33 Aspirin 81 Mg Chew PO 09/05/24 08:59 81 mg QDAY YADIRA Administration Atorvastatin Calcium 40 mg 08/05/24 21:00 08/07/24 20:28 Atorvastatin Calcium 20 Mg Tablet PO 09/04/24 20:59 40 mg HS YADIRA Administration Dextrose 25 ml 08/04/24 15:24 Dextrose 50%-Water Inj 50 Ml Syringe IV 09/03/24 15:23 Q15MIN PRN BG 50-70 responsive npo pt Dextrose 50 ml 08/04/24 15:24 Dextrose 50%-Water Inj 50 Ml Syringe IV 09/03/24 15:23 Q15MIN PRN BG <50 OR BG <70 & pt unresponsive Insulin Human Lispro 0 unit 08/05/24 17:00 08/08/24 11:31 Insulin Lispro (Admelog) 1 Unit/0.01 Ml Unit SC 09/04/24 16:59 1 unit ACHS YADIRA Administration Protocol Magnesium Hydroxide 30 ml 08/04/24 15:20 Milk Of Magnesia Susp 30 Ml Udc PO 09/03/24 15:19 QDAY PRN CONSTIPATION Ondansetron HCl 4 mg 08/04/24 18:30 08/05/24 15:18 Ondansetron Inj 2 Mg/Ml Inj 2 Ml IV 09/03/24 18:29 4 mg Q6HR PRN Administration NAUSEA OR VOMITING Protocol Ticagrelor 90 mg 08/05/24 21:00 08/08/24 09:33 Ticagrelor 90 Mg Tablet PO 09/04/24 20:59 90 mg BID YADIRA Administration Plan Patient is a 69-year-old female with past medical history significant for hypertension, diabetes who presented to the ED with generalized weakness and lethargy. Cardiology was consulted due to severe bradycardia requiring temporary pacemaker insertion. #Acute myocardial infarction of inferior wall status post RCA stent placement #Complete heart block?resolved -Continue with aspirin daily -Discontinue Brilinta after tonight's dose -D/t high risk of bleed, will start patient on Plavix 75mg QD, and discharge on both Aspirin and Plavix -Continue with metoprolol 25 mg and atorvastatin 40 mg at bedtime -Continue to monitor vital signs and symptoms on telemetry -At this time, doesn't require permanent pacemaker -Please f/u with Dr. Hui in 1 week s/p discharge Rest of problems as per primary team #Transaminitis #Type 2 diabetes?stable #Normocytic anemia?stable #MARIE?resolved #Dysphagia #History of CVA Patient's plan and care discussed with my attending, Dr. Ez Whatley MD PGY-2
[2024-08-08 14:42] LABS: Hematocrit 24.4 % (36.0-46.0)
[2024-08-08 14:57] LABS: Hemoglobin 8.1 g/dL (12.0-16.0)
--- NOTE | 2024-08-08 15:21 | PD.RESPRO ---
Documentation for date of: 08/08/24 Subjective Subjective Interval history: No acute overnight events. Sleeping okay, breathing okay on room air, tolerating oral intake without nausea or vomiting. Denies fever, chills, headaches, chest pain, sob, cough, GI or urinary symptoms. Exam Vital Signs Temp Pulse Resp BP Pulse Ox O2 Del Method O2 Flow Rate 96.9 F 74 19 145/79 H 94 L Nasal Cannula 2 08/08/24 12:00 08/08/24 12:08/08/24 12:08/08/24 12:08/08/24 12:08/08/24 12:08/08/24 12:00 Narrative Exam Gen: Well-developed and well-nourished. HEENT: NCAT, PERRLA, EOMI, MMM, anicteric conjunctivae. CVS: normal S1 and S2. RRR, No M/R/G. Resp: CTA B/L. No rhonchi, rales, crackles or wheezing. Abd: soft, non-tender, non-distended. MSK: Good ROM in BUE & BLE. No edema or rash. Neuro: CN II-XII grossly intact. Strength 5/5 in RUE & RLE. Alert and oriented x3. Strength 4/5 in left upper and lower extremities, residual deficit from CVA. Objective Labs 08/08/24 14:32 08/08/24 04:48 Labs: Laboratory Results - last 24 hr 08/08/24 08/08/24 04:48 14:32 WBC 7.6 RBC 2.75 L Hgb 7.9 L 8.1 L Hct 24.4 L 24.4 L MCV 89 MCH 28.7 MCHC 32.4 RDW Std Deviation 46.4 H Plt Count 230 Neut % (Auto) 73 Lymph % (Auto) 17 [place] % (Auto) 8 Eos % (Auto) 1 Baso % (Auto) 0 Neut # (Auto) 5.5 Lymph # (Auto) 1.3 [place] # (Auto) 0.6 Eos # (Auto) 0.1 Baso # (Auto) 0.0 Immature Gran # (Auto) 0.03 H Absolute Nucleated RBC 0.00 Immature Gran % 0 Nucleated RBC % 0 Sodium 137 Potassium 4.2 Chloride 107 Carbon Dioxide 20.6 Anion Gap 9 BUN 19 Creatinine 1.3 Estim Creat Clear Calc 34.6 L eGFR 44 L BUN/Creatinine Ratio 15 Glucose 102 Calculated Osmolality 276 Calcium 8.7 Corrected Calcium 9.0 Phosphorus 3.0 Magnesium 2.1 Total Bilirubin 0.7 AST 42 H ALT 80 H Alkaline Phosphatase 92 Total Protein 6.6 Albumin 3.6 Globulin 3.0 Albumin/Globulin Ratio 1.2 Quality Measures Quality Measures VTE prophylaxis Advance care planning discussed with:: patient Assessment & Plan Assessment Current Active Medications: Generic Name Dose Route Start Last Admin Trade Name Freq PRN Reason Stop Dose Admin Acetaminophen 650 mg 08/04/24 15:20 08/07/24 03:17 Acetaminophen 325 Mg Tablet PO 09/03/24 15:19 650 mg Q4HR PRN Administration PAIN SCALE 1-3 (mild Acetaminophen 650 mg 08/04/24 15:20 Acetaminophen Supp 650 Mg Supp [place] 09/03/24 15:19 Q4HR PRN PAIN SCALE 1-3 (mild Al Hydrox/Mg Hydrox/Simethicone 30 ml 08/04/24 15:20 Mg Hyd/Al Hyd/Wilbert (Maalox Reg) Susp 30 Ml Udc PO 09/03/24 15:19 Q4HR PRN Heartburn or Upset Stomach Aspirin 81 mg 08/06/24 09:00 08/08/24 09:33 Aspirin 81 Mg Chew PO 09/05/24 08:59 81 mg QDAY YADIRA Administration Atorvastatin Calcium 40 mg 08/05/24 21:00 08/07/24 20:28 Atorvastatin Calcium 20 Mg Tablet PO 09/04/24 20:59 40 mg HS YADIRA Administration Dextrose 25 ml 08/04/24 15:24 Dextrose 50%-Water Inj 50 Ml Syringe IV 09/03/24 15:23 Q15MIN PRN BG 50-70 responsive npo pt Dextrose 50 ml 08/04/24 15:24 Dextrose 50%-Water Inj 50 Ml Syringe IV 09/03/24 15:23 Q15MIN PRN BG <50 OR BG <70 & pt unresponsive Insulin Human Lispro 0 unit 08/05/24 17:00 08/08/24 11:31 Insulin Lispro (Admelog) 1 Unit/0.01 Ml Unit SC 09/04/24 16:59 1 unit ACHS YADIRA Administration Protocol Magnesium Hydroxide 30 ml 08/04/24 15:20 Milk Of Magnesia Susp 30 Ml Udc PO 09/03/24 15:19 QDAY PRN CONSTIPATION Ondansetron HCl 4 mg 08/04/24 18:30 08/05/24 15:18 Ondansetron Inj 2 Mg/Ml Inj 2 Ml IV 09/03/24 18:29 4 mg Q6HR PRN Administration NAUSEA OR VOMITING Protocol Ticagrelor 90 mg 08/05/24 21:00 08/08/24 09:33 Ticagrelor 90 Mg Tablet PO 09/04/24 20:59 90 mg BID YADIRA Administration Plan In summary: 69-year-old female PMHx of HTN, distant CVA with residual left-sided deficit, presenting with loss of consciousness in settings of complete heart block. Underwent transcutaneous pacing in ED and admitted to ICU for further management. Had cath showing 90% stenosis of RCA, managed in ICU for NSTEMI. Downgraded to hospitalist team. Currently asymptomatic without chest pain or shortness of breath or palpitations. Continued on ASPIRIN, BRILINTA, statin and METOPROLOL. Vitals within normal limits. Pending cardiology recommendations, will likely discharge tomorrow. NSTEMI s/p PCI Symptomatic bradycardia (resolved) Continued on medication as below. We started METOPROLOL today per cardiology recommendations. HR 74, BP 145/70 and room air. Patient asymptomatic without chest pain, palpitation or shortness of breath. ? Continue ASPIRIN 81 mg daily ? Continue BRILINTA daily ? Continue statin 80 mg HS ? 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 Daily CMP T2DM (stable) A1c 6.9.GLUCOSE 102 after got 4 units SS ? Continue INSULIN SS ? Accu-Cheks Normocytic anemia, likely chronic (stable) Baseline Hgb around 10, today hemoglobin 7.9, 8.1 on repeat. No coagulopathies. No signs or symptoms of abnormal bleeding. ? Recommended outpatient workup. ? Transfuse if Hgb less than 7 MARIE (resolved) CR 2.1 on admission in settings of cardiac arrest. Improved with management. Currently, CR 1.3 ? Renally dose meds, avoid overdiuresis and NEPHROTOXINS Dysphagia New onset dysphagia likely related to intubation. ? Dysphagia diet ? Pending swallow eval History of CVA Distal history of CVA with residual left-sided deficit. No signs or symptoms of acute CVA. ? Continue follow-up outpatient as needed Health maintenance Diet: Cardiac, CHO consistent, dysphagia GI prophylaxis: [] DVT prophylaxis: [] Antibiotics: [] CODE STATUS: [] Disposition: [] Patient case was discussed with attending, [] and senior residents Dr. Mcfarlane and Dr. Bravo. Skyler Fish DO PGYI Senior Resident Attestation: The patient is status post cardiac catheterization and underwent stent placement in RCA, resolving her complete heart block. The patient will be observed overnight, in telemetry unit. The plan is to discharge her tomorrow if she is stable. I discussed with and supervised the digital media intern physician involved in the care of this patient. I personally saw and examined the patient and discussed the assessment and plan with the entire medicine team, including my attending. I agree with the assessment and plan as documented above. Luis Bravo MD PGY2 Internal Medicine Attending Provider Attestation/Addendum I have discussed and was present for the essential components of the history, physical examination, diagnosis, and treatment plan with the resident. I agree with the patient's care as documented by the resident and amended herein by me. Oswald Clarke DO. Although this document has been carefully reviewed, there may still be some phonetic and other typographical errors. These errors are purely grammatical due to imperfections in the software program and should not be construed in any way to compromise the substance of the patient's medical care during this visit.
--- NOTE | 2024-08-08 15:40 | PC.SS ---
SS update: Pending cardiology recommendations, will likely discharge tomorrow.
--- NOTE | 2024-08-08 15:41 | PC.SS ---
SS update: Per Physical therapy, patient declined SNF.
--- NOTE | 2024-08-08 17:53 | PC.NURSE ---
Ambulated patient on room air. Patient desaturated on room air while ambulating to 86%. Patient was brought back to bed and the nasal cannula was reapplied to the patient at 1L, the patient then came back up to 96% oxygenation status.
[2024-08-08] MEDS: ATORVASTATIN CALCIUM 20 MG TABLET 40 MG PO (20:10)
[2024-08-09] VITALS (9 sets, daily range): BP systolic 126–161; BP diastolic 51–91; PULSE 71–88; RESP 16–28; TEMP 36.1–36.8; O2SAT 92–95; BMI 25.8
[2024-08-09 06:17] LABS: Basophils % (Auto) 0 % (0-2.5); Eosinophils # (Auto) 0.2 Thou/mm3 (0.0-0.5); Eosinophils % (Auto) 2 % (0-10); Hematocrit 23.6 % (36.0-46.0); Immature Granulocytes % (Auto) 0 % (0-0); Immature Granulocytes Auto 0.03 Thou/mm3 (0.00-0.00); Lymphocytes # (Auto) 1.3 Thou/mm3 (1.0-4.8); Lymphocytes % (Auto) 17 % (10-50); Mean Corpuscular HGB Conc 33.9 g/dl (31.0-37.0); Mean Corpuscular Hemoglobin 29.5 pg (25.0-35.0); Mean Corpuscular Volume 87 fL (80-100); Monocytes # (Auto) 0.7 Thou/mm3 (0.0-0.8); Monocytes % (Auto) 8 % (0-12); Neutrophils # (Auto) 5.5 Thou/mm3 (1.8-7.7); Neutrophils % (Auto) 72 % (37-80); Nucleated Red Blood Cell % 0 /100 WBC (0); Platelet Count 266 Thou/mm3 (140-440); RDW Standard Deviation 45.1 fL (36.4-46.3); Red Blood Count 2.71 Miln/mm3 (4.00-5.20); White Blood Count 7.7 Thou/mm3 (3.6-11.0)
[2024-08-09 06:35] LABS: Alanine Aminotransferase 57 U/L (10-49); Albumin, Serum 3.7 gm/dL (3.4-4.8); Albumin/Globulin Ratio 1.2 (1.2-2.2); Alkaline Phosphatase 91 U/L (46-116); Anion Gap 9 (7-16); Aspartate Amino Transferase 23 U/L (0-34); BUN/Creatinine Ratio 18 Ratio (12-20); Bilirubin,Total 0.6 mg/dL (0.3-1.2); Blood Urea Nitrogen 21 mg/dL (9-23); Calcium 8.6 mg/dL (8.3-10.6); Calcium (Corrected) 8.8 mg/dL (8.5-10.1); Carbon Dioxide 20.7 mMol/L (20.0-31.0); Chloride 107 mMol/L (98-107); Creatinine (Component) 1.2 mg/dL (0.6-1.3); Estimated Creatinine Clearance 37.3 mL/min (>60); Globulin 3.1 gm/dL (2.3-3.5); Glucose 107 mg/dL (74-106); Osmolality,Calculated 276 (275-295); Potassium 4.3 mMol/L (3.4-5.1); Sodium 137 mMol/L (136-145); Total Protein 6.8 gm/dL (5.7-8.2); eGFR 49 See Note
[2024-08-09] MEDS: ASPIRIN 81 MG CHEW PO (09:07)
[2024-08-09] MEDS: CLOPIDOGREL BISULFATE 75 MG TABLET PO (09:07)
[2024-08-09] MEDS: METOPROLOL SUCCINATE XL 25 MG TABCR PO (09:07)
--- NOTE | 2024-08-09 10:39 | ESPR_ITS ---
<Statement entered by Ceci Hui MD - 08/09/24 14:53> I personally examined the patient evaluated the patient with resident team PGY 2 Dr. Lizett Whatley patient is doing much better now blood pressure is gone up heart rate is also improved tolerating low-dose beta-dipti well blood pressure is high she was started on Plavix instead of Brilinta yesterday because of anemia I will also recommend adding ARB Diovan generic valsartan 160 mg daily at the time of discharge. Patient can be discharged home safely today aspirin and Plavix combination along with Diovan 160 mg daily and statin therapy we will see her for follow-up in 1 week also add metoprolol succinate 25 mg daily. Evaluated the patient along with resident team agree with the treatment plan recommendation and we will see her for follow-up as an outpatient in my office Documentation for date of: 08/09/24 Subjective Subjective Interval history: Patient seen and examined at bedside. Patient's hemoglobin today was 8. Patient denies any chest pain, palpitations, or shortness of breath. Patient states that she feels stable to be discharged to residential facility. Per cardiology, patient is advised to continue taking atorvastatin, aspirin, Plavix and valsartan 160 mg for blood pressure control. Exam Vital Signs Temp Pulse Resp BP Pulse Ox O2 Del Method O2 Flow Rate 97.0 F 78 18 154/57 H 94 L Nasal Cannula 1 08/09/24 08:00 08/09/24 09:07 08/09/24 08:00 08/09/24 09:07 08/09/24 08:00 08/09/24 08:00 08/09/24 08:00 Narrative Exam General Appearance: Pt in NAD, eating her lunch. Well-developed and nourished. HEENT: NC/AT, no scleral icterus, no conjunctival pallor, MMM Lungs: CTAB, no wheezes or crackles appreciated CVS: RRR, S1/S2 heard, no murmurs or rubs appreciated ABD: Soft, non-tender, non-distended, BS + in all 4 quadrants EXT: no deformity/edema/lesions/cyanosis/clubbing, radial pulses 2+ BL, DP pulses 2 + BL SKIN: Skin exam normal without any rashes. Neuro: A&O x 3. No gross neurological deficits. Motor and sensory grossly intact in B/L UL and LL except for LUE and LLE, which is 4/5. Psych: Appropriate mood and affect Objective Labs 08/09/24 05:00 08/09/24 05:00 Labs: Laboratory Results - last 24 hr 08/08/24 08/09/24 14:32 05:00 WBC 7.7 RBC 2.71 L Hgb 8.1 L 8.0 L Hct 24.4 L 23.6 L MCV 87 MCH 29.5 MCHC 33.9 RDW Std Deviation 45.1 Plt Count 266 D Neut % (Auto) 72 Lymph % (Auto) 17 [place] % (Auto) 8 Eos % (Auto) 2 Baso % (Auto) 0 Neut # (Auto) 5.5 Lymph # (Auto) 1.3 [place] # (Auto) 0.7 Eos # (Auto) 0.2 Baso # (Auto) 0.0 Immature Gran # (Auto) 0.03 H Absolute Nucleated RBC 0.00 Immature Gran % 0 Nucleated RBC % 0 Sodium 137 Potassium 4.3 Chloride 107 Carbon Dioxide 20.7 Anion Gap 9 BUN 21 Creatinine 1.2 Estim Creat Clear Calc 37.3 L eGFR 49 L BUN/Creatinine Ratio 18 Glucose 107 H Calculated Osmolality 276 Calcium 8.6 Corrected Calcium 8.8 Total Bilirubin 0.6 AST 23 ALT 57 H Alkaline Phosphatase 91 Total Protein 6.8 Albumin 3.7 Globulin 3.1 Albumin/Globulin Ratio 1.2 Quality Measures Quality Measures VTE prophylaxis Advance care planning discussed with:: patient Assessment & Plan Assessment Current Active Medications: Generic Name Dose Route Start Last Admin Trade Name Freq PRN Reason Stop Dose Admin Acetaminophen 650 mg 08/04/24 15:20 08/07/24 03:17 Acetaminophen 325 Mg Tablet PO 09/03/24 15:19 650 mg Q4HR PRN Administration PAIN SCALE 1-3 (mild Acetaminophen 650 mg 08/04/24 15:20 Acetaminophen Supp 650 Mg Supp [place] 09/03/24 15:19 Q4HR PRN PAIN SCALE 1-3 (mild Al Hydrox/Mg Hydrox/Simethicone 30 ml 08/04/24 15:20 Mg Hyd/Al Hyd/Wilbert (Maalox Reg) Susp 30 Ml Udc PO 09/03/24 15:19 Q4HR PRN Heartburn or Upset Stomach Aspirin 81 mg 08/06/24 09:00 08/09/24 09:07 Aspirin 81 Mg Chew PO 09/05/24 08:59 81 mg QDAY YADIRA Administration Atorvastatin Calcium 40 mg 08/05/24 21:00 08/08/24 20:10 Atorvastatin Calcium 20 Mg Tablet PO 09/04/24 20:59 40 mg HS YADIRA Administration Clopidogrel Bisulfate 75 mg 08/09/24 09:00 08/09/24 09:07 Clopidogrel Bisulfate 75 Mg Tablet PO 09/08/24 08:59 75 mg QDAY YADIRA Administration Dextrose 25 ml 08/04/24 15:24 Dextrose 50%-Water Inj 50 Ml Syringe IV 09/03/24 15:23 Q15MIN PRN BG 50-70 responsive npo pt Dextrose 50 ml 08/04/24 15:24 Dextrose 50%-Water Inj 50 Ml Syringe IV 09/03/24 15:23 Q15MIN PRN BG <50 OR BG <70 & pt unresponsive Insulin Human Lispro 0 unit 08/05/24 17:00 08/09/24 07:08 Insulin Lispro (Admelog) 1 Unit/0.01 Ml Unit SC 09/04/24 16:59 Not Given ACHS YADIRA Protocol Magnesium Hydroxide 30 ml 08/04/24 15:20 Milk Of Magnesia Susp 30 Ml Udc PO 09/03/24 15:19 QDAY PRN CONSTIPATION Metoprolol Succinate 25 mg 08/09/24 09:00 08/09/24 09:07 Metoprolol Succinate Xl 25 Mg Tabcr PO 09/08/24 08:59 25 mg QDAY YADIRA Administration Ondansetron HCl 4 mg 08/04/24 18:30 08/05/24 15:18 Ondansetron Inj 2 Mg/Ml Inj 2 Ml IV 09/03/24 18:29 4 mg Q6HR PRN Administration NAUSEA OR VOMITING Protocol Plan Patient is a 69-year-old female with past medical history significant for hypertension, diabetes who presented to the ED with generalized weakness and lethargy. Cardiology was consulted due to severe bradycardia requiring temporary pacemaker insertion. #Acute myocardial infarction of inferior wall status post RCA stent placement #Complete heart block?resolved -Continue with aspirin and Plavix daily -Continue with metoprolol 25 mg and atorvastatin 40 mg at bedtime -Will add Valsartan 160mg for better BP control -Continue to monitor vital signs and symptoms on telemetry -At this time, doesn't require permanent pacemaker -Please f/u with Dr. Hui in 1 week s/p discharge Rest of problems as per primary team #Transaminitis #Type 2 diabetes?stable #Normocytic anemia?stable #MARIE?resolved #Dysphagia #History of CVA Patient's plan and care discussed with my attending, Dr. Ez Whatley MD PGY-2
[2024-08-09] MEDS: INSULIN LISPRO (AdmeLOG) 1 UNIT/0.01 ML UNIT SC ×3 (11:56→20:18)
[2024-08-09] MEDS: VALSARTAN 80 MG TABLET 160 MG PO (12:34)
--- NOTE | 2024-08-09 15:40 | ESDS_ITS ---
Planned Discharge Date 08/09/24 DS: Providers Provider Date of admission: 08/04/24 15:20 Primary care physician: Physician No Primary/Family Admitting Provider: Felix Corona MD Attending Provider on Admission: Felix Corona MD Consults: 08/04/24 13:31 Consult to Cardiology Stat Comment: Consulting Provider: Ceci Hui 08/08/24 10:35 Referral Physical Therapy Urgent Comment: Physician Instructions: Attending Provider on DC: Luis Bravo MD Discharging Provider: Luis Bravo MD DS: Diagnosis Problem List Completed Was Problem List Reviewed/Reconciled?: Yes Hospital Course Hospital Course Hospital course: 69-year-old female with history of hypertension, CVA with residual left-sided weakness, dyslipidemia, [id number] diabetes who presented to the ED from home with chief complaint of severe lethargy and weakness presented to ED after he started feeling dizzy upon standing at night while using restroom. This morning patient was difficult to arouse, patient's family called EMS to have patient taken to the ER. EKG showed severe bradycardia with complete heart block. Underwent transcutaneous pacing in ED and admitted to ICU for further management. Had cath showing 90% stenosis of RCA, S/p stent at RCA, Resolving complete heart block, managed in ICU for NSTEMI. Downgraded to hospitalist team. Her electrolytes were stabilized and as her vitals were stable with HR in 70's the patient was planned for discharge. For anemia, patient was suggested to follow-up outpatient for further workup. PT evaluated the patient and r ecommended SNF. On the morning of 08/09/2024, patient reported doing well. Her vitals were stable. Her discharge plan was discussed with the patient herself and her son, who agreed with the current management plan. Patient was discharged to SNF. Problems: NSTEMI s/p RCA Stent Symptomatic bradycardia (resolved) Transaminitis (improving) T2DM (stable) Normocytic anemia, likely chronic (stable) MARIE (resolved) Dysphagia, Resolved History of CVA Plans: Please follow-up with your PCP within 1 week of discharge. Follow-up with Dr. Hui within 1 week of discharge. We have switched your carvedilol 6.25 Mg to metoprolol succinate 25 Mg daily You have been started on aspirin 81 Mg daily and valsartan 160mg daily. Continue with all other medicines as prescribed Recommended to return back to emergency department if your symptoms persist or do not improve. The patient's management plan was discussed with my attending physician Dr. Clarke, DO Luis Bravo MD, PGY2 Time Spent with Patient Time attestation: Total time spent providing and/or coordinating discharge services: >45 min Exam Vital Signs Temp Pulse Resp BP Pulse Ox O2 Del Method O2 Flow Rate 97.2 F 71 18 160/79 H 95 Nasal Cannula 1 08/09/24 12:00 08/09/24 12:34 08/09/24 12:00 08/09/24 12:34 08/09/24 12:00 08/09/24 12:00 08/09/24 12:00 Narrative Exam General: No acute distress, Alert and Oriented x 3 HEENT: Moist mucous membranes, oropharynx clear Neck: Supple, No masses, No JVD CVS: S1S2 Regular rate and rhythm, No murmurs, rubs or gallops Lungs: Clear to auscultation with no accessory use, no wheeze no rhonchi Abd: Soft, NT/ND, +BS, no organomegaly Ext: No edema, warm and well perfused Skin: No rash Psych: Appropriate mood and affect Discharge Plan Plan Patient Disposition: Xfer Skilled Nsg Fac (SNF) Care Plan Goals: Please follow-up with your PCP within 1 week of discharge. Follow-up with Dr. Hui within 1 week of discharge. We have switched your carvedilol 6.25 Mg to metoprolol succinate 25 Mg daily You have been started on aspirin 81 Mg daily and valsartan 160mg daily. Continue with all other medicines as prescribed Recommended to return back to emergency department if your symptoms persist or do not improve. Prescriptions/Referrals Prescriptions/Med Rec: New aspirin 81 mg tablet,delayed release (DR/EC) 81 mg PO QDAY Qty: 30 3RF metoprolol succinate 25 mg Tablet Extended Release 24 Hr 25 mg PO QDAY 30 Days Qty: 30 3RF valsartan 160 mg tablet 160 mg PO QDAY 30 Days Qty: 30 3RF Continued atorvastatin [Lipitor] 40 MG tablet 40 mg PO HS Qty: 0 clopidogrel [Plavix] 75 MG tablet 75 mg PO QDAY Qty: 30 0RF ferrous sulfate [FeroSul] 325 mg (65 mg iron) tablet 325 mg PO DAILY Patient Comments: take 1 tablet by mouth once daily hydrochlorothiazide 12.5 mg capsule 12.5 mg PO DAILY Patient Comments: take 1 capsule by mouth once daily furosemide 20 mg tablet 20 mg PO DAILY Patient Comments: take 1 tablet by mouth once daily cholecalciferol (vitamin D3) 125 mcg (5,000 unit) capsule 125 mcg PO DAILY Patient Comments: take 1 capsule by mouth once daily solifenacin 10 mg tablet 10 mg PO DAILY Patient Comments: take 1 tablet by mouth once daily Januvia 50 mg tablet 50 mg PO DAILY Patient Comments: take 1 tablet by mouth once daily omeprazole 20 mg capsule,delayed release(DR/EC) 20 mg PO QDAY PRN (Reason: Heartburn) Discontinued carvedilol 6.25 mg tablet 6.25 mg PO BID Patient Comments: take 1 tablet by mouth twice a day Amlodipine Besylate 10 mg tablet 10 mg PO QDAY Referrals: No Primary/Family,Physician [Primary Care Provider] - Patient/Caregiver Discharge Instructions Discharge Activity: activity as tolerated Other Discharge Activity Instructions:: Please follow-up with your PCP within 1 week of discharge. Follow-up with Dr. Hui within 1 week of discharge. We have switched your carvedilol 6.25 Mg to metoprolol succinate 25 Mg daily You have been started on aspirin 81 Mg daily and valsartan 160mg daily. Continue with all other medicines as prescribed Recommended to return back to emergency department if your symptoms persist or do not improve Education Materials: Exercise for a Healthier Heart, Eating Heart-Healthy Foods Print Language: Icelandic Stand Alone Forms: [employer] Award Info., Patient Portal Info Letter Discharge Order Discharge Orders: Discharge (Routine); Ordered 08/09/24 Ordered By: Luis Bravo Quality Discharge Quality Measures VTE prophylaxis MD Attestestation MD Attestation I have discussed and was present for the essential components of the discharge history, physical examination, diagnosis, and discharge treatment plan with the resident. I agree with the patient's discharge care as documented by the resident and amended herein by me. Oswald Clarke DO. The patient understood all discharge instructions, all questions were answered satisfactorily. The patient was instructed to return to the Emergency Department is symptoms worsened or persisted. Although this document has been carefully reviewed, there may still be some phonetic and other typographical errors. These errors are purely grammatical due to imperfections in the software program and should not be construed in any way to compromise the substance of the patient's medical care during this visit.
--- NOTE | 2024-08-09 16:54 | PC.CC ---
Pt Yessy Hernandez, plan for D/c home with request for hospital bed. ASW met with pt at bedside to confirm D/c plan. During rounding ASW informed that pt is willing to D/c to SNF for short term rehab. ASW met with pt at bedside to confirm D/c kelly, with pt expressing no preference SNF. Pt has no hx of ID, DD, not hx of MH and is not on MH medications. PASRR completed for pt at this time and clinical packet uploaded to [employer]. [id number]-ASW spoke with pts kalyani Benitez [phone] with D/c plan. Pts son updated that he would be informed of accepting facility and D/c time. Pt acepted to [facility], [facility], [facility] and [facility]. ASW presented to pt who accepted [facility]. ASW spoke with Aarti with [facility], pt is able to D/c today. 1615-Call to [facility] for gurney transport. Reference # [id number]. PCS and face sheet uploaded to [employer]. Pt packet created and attached to hard chart. Nursing staff aware.
--- NOTE | 2024-08-09 18:38 | PC.NURSE ---
Report given to Fernanda ANDRADE at [facility]. All PMH and current status given to nurse. Family and patient are both aware of transfer to SNF.
[2024-08-09] MEDS: ATORVASTATIN CALCIUM 20 MG TABLET 40 MG PO (20:17)
== END 2024-08-09 20:56 | disposition skilled nursing facility (03) | DRG 321 ==
LOC: SERX 14:10 → S2SX 18:03 → S2NX 08-07 15:56
PROVIDERS: Internal Medicine Cardiovascular Disease; Student in an Organized Health Care Education/Training Program; Admitting Provider Internal Medicine Critical Care Medicine; Emergency Provider Emergency Medicine; Visit Provider Internal Medicine Critical Care Medicine
PROC: 5A1223Z Performance of Cardiac Pacing, Continuous (ICD-10-PCS; principal; 2024-08-04 14:00)
PROC: 027034Z Dilation of Coronary Artery, One Artery with Drug-eluting Intraluminal Device, Percutaneous Approach (ICD-10-PCS; principal; 2024-08-05 14:00)
DX: I21.4 Non-ST elevation (NSTEMI) myocardial infarction (principal); R57.0 Cardiogenic shock; E87.20 Acidosis, unspecified; I44.2 Atrioventricular block, complete; I69.354 Hemiplegia and hemiparesis following cerebral infarction affecting left non-dominant side; N17.9 Acute kidney failure, unspecified; I25.10 Atherosclerotic heart disease of native coronary artery without angina pectoris; R00.1 Bradycardia, unspecified; I10 Essential (primary) hypertension; E11.9 Type 2 diabetes mellitus without complications; D64.9 Anemia, unspecified; E78.00 Pure hypercholesterolemia, unspecified; E87.5 Hyperkalemia; R09.02 Hypoxemia; R13.10 Dysphagia, unspecified; Z79.84 Long term (current) use of oral hypoglycemic drugs; Z79.82 Long term (current) use of aspirin; Z79.899 Other long term (current) drug therapy; Z79.02 Long term (current) use of antithrombotics/antiplatelets
CPT/HCPCS: 36415; 71045; 80053; 80061; 83036; 83605; 83735; 83880; 84100; 84484; 85014; 85018; 85025; 85347; 85610; 85730; 87081; 87400; 87811; 92610; 93005; 93306; 96361; 96365; 96374; 97162; 99152; 99153; 99291; A4649; C1725; C1769; C1874; C1887; C1894; J0171; J0461; J1250; J1643; J1644; J1815; J2250; J2310; J2371; J2405; J3010; J3475; J3490; J7030; Q9967; A9270; J2305

== ENCOUNTER → 2025-03-24 | Outpatient (CLI) | payer MEDICARE, MEDICAID, SELFPAY ==
--- NOTE | 2025-03-24 12:22 | EKG_ITS ---
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 : [id number] Requested By: Ynes Velazco Order Number: [id number] Reading MD: Ynes Velazco Measurements Intervals Burns Rate: 71 P: 61 TX: 215 QRS: 17 QRSD: 82 T: 47 QT: 387 QTc: 423 Interpretive Statements SINUS RHYTHM WITH FIRST DEGREE AV BLOCK LOW QRS VOLTAGE IN PRECORDIAL LEADS [QRS DEFLECTION < 1.0 mV IN CHEST LEADS] POSSIBLE ANTERIOR MYOCARDIAL INFARCTION , OF INDETERMINATE AGE [30 ms Q WAVE IN V3/V4, OR R < 0.2 mV IN V4] Compared to ECG 08/06/2024 14:10:48 T-wave abnormality no longer present Possible ischemia no longer present Myocardial infarct finding still present /store/S0/[id number]/[id number].pdf
== END | disposition home or self-care (01) ==
PROVIDERS: PCP Family Medicine; Referring Provider Ophthalmology; Visit Provider Ophthalmology
DX: Z01.818 Encounter for other preprocedural examination (principal); H25.811 Combined forms of age-related cataract, right eye
CPT/HCPCS: 93005